=== PATIENT | female | born 1985 | race Caucasian/White ===

== ENCOUNTER 2019-08-05 07:34 | Day surgery (SDC) | payer OTHER ==
[2019-08-01 14:31] LABS: Absolute Lymphocytes (CBC) 1.6 K/uL (0.7-4.9); Basophils % 0.8 % (0-1.3); Hematocrit 44.9 % (36.0-45.0); Lymphocytes % 29.1 % (15.3-44.8); MPV 8.2 fL (7.6-11.3); RBC Red Blood Cell Count 4.75 M/uL (3.86-4.86)
[2019-08-01 15:03] LABS: ALT/SGPT 21 U/L (12-78); AST/SGOT 17 U/L (15-37); Albumin 4.1 g/dL (3.4-5.0); Alkaline Phosphatase 80 U/L (45-117); Amylase Level 55 U/L (25-115); BUN Blood Urea Nitrogen 8 mg/dL (7-18); Bicarbonate 30 mmol/L (21-32); Bilirubin Direct < 0.1 mg/dL (0-0.2); Bilirubin Total 0.3 mg/dL (0.2-1.0); Glucose Level 80 mg/dL (74-106); Lipase 208 U/L (73-393); Sodium Level 140 mmol/L (136-145)
--- OUTSIDE RECORDS SUMMARY | 2019-08-05 07:37 | XMS REPORT | Summary of Care ---
:1985 Author Organization [facility] Address [address] [place] [address] Care Team Providers Name Role Phone Rona Alexis DAY CARE CENTER DIRECTOR Primary Care Provider Reason for Visit Reason Comments Other refill lo loestrin Encounter Details Date Type Department Care Team Description 01/09/2019 Telephone [facility]- Rona Alexis, Other (refill lo [facility] loestrin ) [address] [facility] [address] [place], [place] [phone] Allergies Active Allergy Reactions Severity Noted Date Comments Azithromycin Hives 05/20/2016 Pt states she is allergic to the z-pack. Latex Other - See comments 01/25/2018 Sulfa (Sulfonamide Unknown - See 04/01/2009 Antibiotics) comments documented as of this encounter (statuses as of 01/09/2019) Medications Medication Sig Dispensed Refills Start Date End Date Status metoprolol succinate Take 25 mg by 0 Active XL (TOPROL XL) 25 mg mouth daily. 24 hr Indications: tabletIndications: MIGRAINE Migraine Prevention PREVENTION citalopram (CELEXA) 20 Take 40 mg by 0 Active mg tablet mouth daily. desvenlafaxine Take 100 mg by 0 Active succinate (PRISTIQ) mouth daily. 100 mg 24 hr tablet SUMAtriptan (IMITREX) Take 50 mg by 0 Active 50 mg tablet mouth once now. norethindrone-e.estrad Take 1 tablet by 1 Package 12 01/25/2018 Active iol-iron (LO LOESTRIN mouth daily. FE) 1 mg-10 mcg (24)/10 mcg (2) per tabletIndications: Surveillance of previously prescribed contraceptive pill ibuprofen 600 mg Take 1 tablet by 10 tablet 0 10/25/2018 Active tabletIndications: mouth every 6 Pain of right upper (six) hours as extremity, Right arm needed for Pain pain (scale 1-3). traMADOL 50 mg Take 1 tablet by 10 tablet 0 10/25/2018 Active tabletIndications: mouth every 8 Pain of right upper (eight) hours as extremity, Right arm needed for Pain pain (scale 7-10). documented as of this encounter (statuses as of 01/09/2019) Active Problems Problem Noted Date Well woman exam 01/25/2018 Anxiety disorder, unspecified type 01/25/2018 Depression 02/23/2016 Screening examination for STD (sexually transmitted disease) 09/04/2014 Pain pelvic 09/04/2014 Surveillance of previously prescribed contraceptive pill 09/04/2014 Endometriosis 02/11/2013 documented as of this encounter (statuses as of 01/09/2019) Resolved Problems Problem Noted Date Resolved Date BV (bacterial vaginosis) 05/31/2016 05/31/2016 Intractable migraine without status migrainosus 02/23/2016 01/25/2018 Overview: Managed with metoprolol Vaginal discharge 07/24/2015 01/25/2018 Candidiasis of vulva and vagina 02/06/2015 01/25/2018 Vaginal leukorrhea 09/04/2014 02/06/2015 Overview: ICD10 Diagnosis Term Corn Grinder Utility Pain pelvic 02/11/2013 09/04/2014 Abdominal pain 02/11/2013 09/04/2014 Overview: ICD10 Diagnosis Term Corn Grinder Utility Anxiety 02/11/2013 02/06/2015 Irregular menstrual cycle 02/11/2013 09/04/2014 documented as of this encounter (statuses as of 01/09/2019) Immunizations Name Administration Dates Next Due Tdap 06/05/2011 documented as of this encounter Social History Tobacco Use Types Packs/Day Years Used Date Never Smoker Smokeless Tobacco: Never Used Alcohol Use Drinks/Week oz/Week Comments No 0 Standard drinks or equivalent 0.0 special occasions ( 3 times a year) Sex Assigned at Date Recorded Not on file Job Start Date Occupation Industry Not on file Not on file Not on file Travel History Travel Start Travel End No recent travel history available. documented as of this encounter Last Filed Vital Signs Not on filedocumented in this encounter Plan of Treatment Health Maintenance Due Date Last Done Comments VARICELLA VACCINES (1 of 2 1997 - 13+ 2-dose series) INFLUENZA VACCINE 02/03/2019 PAP SMEAR 01/25/2021 01/25/2018, 02/23/2016, 10/24/2012, Additional history exists DTaP,Tdap,and Td Vaccines 06/05/2021 06/05/2011 (2 - Td) PNEUMOCOCCAL 0-64 YEARS Aged Out No longer eligible COMBINED SERIES based on patient's age to complete this topic documented as of this encounter Results Not on filedocumented in this encounter Insurance Payer Benefit Plan Subscriber ID Effective Dates Phone Address Type / Group ST OFF OF ST [place] OF [id number] 2018-Beatrice [facility] RISK MGMT RISK MGMT nt BCBS OF [facility] [id number] 2017-[place] [phone] [address] PPO/ POS [place] [facility] t 7 [id number] [place] [address] documented as of this encounter
--- OUTSIDE RECORDS SUMMARY | 2019-08-05 07:37 | XMS REPORT | Summary of Care ---
:1985 Author Organization [facility] Address [address] [place] [address] Care Team Providers Name Role Phone Rona Alexis CARE GIVER Primary Care Provider Reason for Visit Reason Comments Refill Request Encounter Details Date Type Department Care Team Description 01/04/2019 Telephone [facility]- Rona Alexis, CARE GIVER Refill Request [place] [address] [facility] [address] [place] [address] [place] [address] Allergies Active Allergy Reactions Severity Noted Date Comments Azithromycin Hives 05/20/2016 Pt states she is allergic to the z-pack. Latex Other - See comments 01/25/2018 Sulfa (Sulfonamide Unknown - See 04/01/2009 Antibiotics) comments documented as of this encounter (statuses as of 01/07/2019) Medications Medication Sig Dispensed Refills Start Date [...] as of this encounter (statuses as of 01/07/2019) Active Problems Problem Noted Date Well woman exam 01/25/2018 Anxiety disorder, unspecified type 01/25/2018 Depression 02/23/2016 Screening examination for STD (sexually transmitted disease) 09/04/2014 Pain pelvic 09/04/2014 Surveillance of previously prescribed contraceptive pill 09/04/2014 Endometriosis 02/11/2013 documented as of this encounter (statuses as of 01/07/2019) Resolved Problems Problem Noted Date Resolved Date BV (bacterial vaginosis) 05/31/2016 05/31/2016 Intractable migraine without status migrainosus 02/23/2016 01/25/2018 Overview: Managed with metoprolol Vaginal discharge 07/24/2015 01/25/2018 Candidiasis of vulva and vagina 02/06/2015 01/25/2018 Vaginal leukorrhea 09/04/2014 02/06/2015 Overview: ICD10 Diagnosis Term Parking Inspector Utility Pain pelvic 02/11/2013 09/04/2014 Abdominal pain 02/11/2013 09/04/2014 Overview: ICD10 Diagnosis Term Parking Inspector Utility Anxiety 02/11/2013 02/06/2015 Irregular menstrual cycle 02/11/2013 09/04/2014 documented as of this encounter (statuses as of 01/07/2019) Immunizations Name Administration Dates Next Due Tdap [...] Group ST OFF OF ST OFF OF [id number] 2018-Beatrice [facility] RISK MGMT RISK MGMT nt BCBS OF [facility] [id number] 2017-[place] [phone] [address] PPO/ POS [place] SELECT t 7 [id number] [place] [address] documented as of this encounter
--- OUTSIDE RECORDS SUMMARY | 2019-08-05 07:37 | XMS REPORT | Summary of Care ---
:1985 Author Organization [facility] Address [address] [place] [address] Care Team Providers Name Role Phone Rona Alexis NEURORADIOLOGIST Primary Care Provider Reason for Visit Reason Comments Refill Request Encounter Details Date Type Department Care Team Description 06/27/2019 Refill [facility] Rona Alexis, [facility] Refill Request [address] [facility] [address] [place] [address] [place] [address] [phone] Allergies Active Allergy Reactions Severity Noted Date Comments Azithromycin Hives 05/20/2016 Pt states she is allergic to the z-pack. Latex Other - See comments 01/25/2018 Sulfa (Sulfonamide Unknown - See 04/01/2009 Antibiotics) comments documented as of this encounter (statuses as of 06/27/2019) Medications Medication Sig Dispensed Refills Start Date End Date Status metoprolol succinate Take 25 mg by 0 Active XL (TOPROL XL) 25 mg mouth daily. 24 hr Indications: tabletIndications: MIGRAINE migraine prevention PREVENTION citalopram (CELEXA) 20 Take 40 mg by 0 Active mg tablet mouth daily. SUMAtriptan (IMITREX) Take 50 mg by 0 Active 50 mg tablet mouth once now. norgestimate-ethinyl Take 1 tablet by 1 Package 3 03/06/2019 Active estradiol mouth daily. 0.18/0.215/0.25 mg-25 mcg tabletIndications: Encounter for contraceptive management, unspecified type documented as of this encounter (statuses as of 06/27/2019) Active Problems Problem Noted Date Dysuria 05/09/2019 Essential hypertension 03/06/2019 History of anxiety 03/06/2019 History of depression 03/06/2019 History of endometriosis 03/06/2019 Encounter for contraceptive management, unspecified type 01/25/2018 Anxiety disorder, unspecified type 01/25/2018 Bacterial vaginosis 05/31/2016 Depression 02/23/2016 Vaginal discharge 07/24/2015 Screening examination for STD (sexually transmitted disease) 09/04/2014 Pain pelvic 09/04/2014 Surveillance of previously prescribed contraceptive pill 09/04/2014 Endometriosis 02/11/2013 documented as of this encounter (statuses as of 06/27/2019) Resolved Problems Problem Noted Date Resolved Date Intractable migraine without status migrainosus 02/23/2016 01/25/2018 Overview: Managed with metoprolol Candidiasis of vulva and vagina 02/06/2015 01/25/2018 Vaginal leukorrhea 09/04/2014 02/06/2015 Overview: ICD10 Diagnosis Term Supervisor Toy Assembly Utility Pain pelvic 02/11/2013 09/04/2014 Abdominal pain 02/11/2013 09/04/2014 Overview: ICD10 Diagnosis Term Supervisor Toy Assembly Utility Anxiety 02/11/2013 02/06/2015 Irregular menstrual cycle 02/11/2013 09/04/2014 documented as of this encounter (statuses as of 06/27/2019) Immunizations Name Administration Dates Next Due Tdap 06/05/2011 documented as of this encounter Social History Tobacco Use Types Packs/Day Years Used Date Never Smoker Smokeless Tobacco: Never Used Alcohol Use Drinks/Week oz/Week Comments Yes 0 Standard drinks or equivalent 0.0 special [...] Done Comments VARICELLA VACCINES (1 of 2 1985 - 2-dose childhood series) INFLUENZA VACCINE (#1) 2019 PAP SMEAR 01/25/2021 01/25/2018, 02/23/2016, 10/24/2012, Additional history exists DTaP,Tdap,and Td Vaccines 06/05/2021 06/05/2011 (2 - Td) PNEUMOCOCCAL 0-64 YEARS Aged Out No longer eligible COMBINED SERIES based on patient's age to complete this topic documented as of this encounter Results Not on filedocumented in this encounter Visit Diagnoses Diagnosis Encounter for contraceptive management, unspecified type documented in this encounter Insurance Payer Benefit Plan / Subscriber ID Effective Dates Phone Address Type Group ST OFF OF RISK ST OFF OF RISK [id number] 2018-Present [facility] MGMT MGMT documented as of this encounter
--- OUTSIDE RECORDS SUMMARY | 2019-08-05 07:37 | XMS REPORT ---
:1985 Author Organization [facility] Address [address] [place] [address] [place] [address] Care Team Providers Name Role Phone Unavailable Unavailable Unavailable Problems This patient has no known problems. Allergies, Adverse Reactions, Alerts This patient has no known allergies or adverse reactions. Medications This patient has no known medications.
--- OUTSIDE RECORDS SUMMARY | 2019-08-05 07:37 | XMS REPORT | Summary of Care ---
:1985 Author Organization [facility] Address [address] [place] [address] Care Team Providers Name Role Phone Rona Alexis SHAPER SETTER Primary Care Provider Reason for Visit Reason Comments Refill Request Encounter Details Date Type Department Care Team Description 12/31/[address] [facility] Rona Alexis, [facility] Refill Request [address] [facility] [address] [place] [address] [place] [address] [phone] Allergies Active Allergy Reactions Severity Noted Date Comments Azithromycin Hives 05/20/2016 Pt states she is allergic to the z-pack. Latex Other - See comments 01/25/2018 Sulfa (Sulfonamide Unknown - See 04/01/2009 Antibiotics) comments documented as of this encounter (statuses as of 12/31/2018) Medications Medication Sig Dispensed Refills Start Date [...] as of this encounter (statuses as of 12/31/2018) Active Problems Problem Noted Date Well woman exam 01/25/2018 Anxiety disorder, unspecified type 01/25/2018 Depression 02/23/2016 Screening examination for STD (sexually transmitted disease) 09/04/2014 Pain pelvic 09/04/2014 Surveillance of previously prescribed contraceptive pill 09/04/2014 Endometriosis 02/11/2013 documented as of this encounter (statuses as of 12/31/2018) Resolved Problems Problem Noted Date Resolved Date BV (bacterial vaginosis) 05/31/2016 05/31/2016 Intractable migraine without status migrainosus 02/23/2016 01/25/2018 Overview: Managed with metoprolol Vaginal discharge 07/24/2015 01/25/2018 Candidiasis of vulva and vagina 02/06/2015 01/25/2018 Vaginal leukorrhea 09/04/2014 02/06/2015 Overview: ICD10 Diagnosis Term Video Machines Mechanic Utility Pain pelvic 02/11/2013 09/04/2014 Abdominal pain 02/11/2013 09/04/2014 Overview: ICD10 Diagnosis Term Video Machines Mechanic Utility Anxiety 02/11/2013 02/06/2015 Irregular menstrual cycle 02/11/2013 09/04/2014 documented as of this encounter (statuses as of 12/31/2018) Immunizations Name Administration Dates Next Due Tdap [...] filedocumented in this encounter Visit Diagnoses Diagnosis Surveillance of previously prescribed contraceptive pill documented in this encounter Insurance Payer Benefit Plan Subscriber ID Effective Dates Phone Address Type / Group ST OFF [place] ST [place] OF [id number] 2018-Beatrice [employer] RISK MGMT RISK MGMT nt BCBS OF [facility] [id number] 2017-[place] [phone] [address]OX PPO/ POS [place] [facility] t 7 [id number] [place] [address] documented as of this encounter
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
--- OUTSIDE RECORDS SUMMARY | 2019-08-05 07:38 | XMS REPORT | Summary of Care ---
:1985 Author Organization [facility] Address [address] [place] [address] Care Team Providers Name Role Phone Rona Alexis PRIMARY SCHOOL TEACHER Primary Care Provider Reason for Visit Reason Comments Refill Request Encounter Details Date Type Department Care Team Description 06/28/2019 Refill [facility] [place] Rona Alexis, [facility] Refill Request [address] [facility] [address] [place] [address] [place] [address] [phone] Allergies Active Allergy Reactions Severity Noted Date Comments Azithromycin Hives 05/20/2016 Pt states she is allergic to the z-pack. Latex Other - See comments 01/25/2018 Sulfa (Sulfonamide Unknown - See 04/01/2009 Antibiotics) comments documented as of this encounter (statuses as of 06/28/2019) Medications Medication Sig Dispensed Refills Start Date [...] as of this encounter (statuses as of 06/28/2019) Active Problems Problem Noted Date Dysuria 05/09/2019 [...] as of this encounter (statuses as of 06/28/2019) Resolved Problems Problem Noted Date Resolved Date Intractable migraine without status migrainosus 02/23/2016 01/25/2018 Overview: Managed with metoprolol Candidiasis of vulva and vagina 02/06/2015 01/25/2018 Vaginal leukorrhea 09/04/2014 02/06/2015 Overview: ICD10 Diagnosis Term Scleroscope Tester Utility Pain pelvic 02/11/2013 09/04/2014 Abdominal pain 02/11/2013 09/04/2014 Overview: ICD10 Diagnosis Term Scleroscope Tester Utility Anxiety 02/11/2013 02/06/2015 Irregular menstrual cycle 02/11/2013 09/04/2014 documented as of this encounter (statuses as of 06/28/2019) Immunizations Name Administration Dates Next Due Tdap [...] OFF OF RISK ST OFF OF RISK [id number] 2018-Present [facility] MGMT MGMT documented as of this encounter
--- OUTSIDE RECORDS SUMMARY | 2019-08-05 07:38 | XMS REPORT | Summary of Care ---
:1985 Author Organization [facility] Address [address] [place] [address] Care Team Providers Name Role Phone Rona Alexis EQUIPMENT ENGINEER Primary Care Provider Reason for Visit Reason Comments Appointment Encounter Details Date Type Department Care Team Description 06/28/2019 Telephone [facility] [place] Rona Alexis, [facility] Appointment [address] [facility] [address] [place] [address] [place] [address] [phone] Allergies Active Allergy Reactions Severity Noted Date [...] leukorrhea 09/04/2014 02/06/2015 Overview: ICD10 Diagnosis Term Fiber Design Engineer Utility Pain pelvic 02/11/2013 09/04/2014 Abdominal pain 02/11/2013 09/04/2014 Overview: ICD10 Diagnosis Term Fiber Design Engineer Utility Anxiety 02/11/2013 02/06/2015 Irregular menstrual cycle [...] OFF OF RISK ST OFF OF RISK [id number] 2018-Present [facility] MGMT MGMT documented as of this encounter
--- OUTSIDE RECORDS SUMMARY | 2019-08-05 07:38 | XMS REPORT | Summary of Care ---
:1985 Author Organization [facility] Address [address] [place] [address] Care Team Providers Name Role Phone Rona Alexis DRAPERY AND UPHOLSTERY MEASURER Primary Care Provider Reason for Visit Reason Comments ORAL CONTRACEPTIVE PILL Encounter Details Date Type Department Care Team Description 07/01/2019 Office Visit [facility] Rona Alexis Encounter for DANE [place] contraceptive [address] [place] [address] [facility], unspecified [place], [place] type (Primary Dx) [address] [place] [address] [phone] Allergies Active Allergy Reactions Severity Noted Date [...] leukorrhea 09/04/2014 02/06/2015 Overview: ICD10 Diagnosis Term Inter Fold Roll Cutter Utility Pain pelvic 02/11/2013 09/04/2014 Abdominal pain 02/11/2013 09/04/2014 Overview: ICD10 Diagnosis Term Inter Fold Roll Cutter Utility Anxiety 02/11/2013 02/06/2015 Irregular menstrual cycle [...] Comments Blood Pressure 127/87 07/01/2019 3:42 PM OUTDOOR ADVENTURE GUIDES Pulse 68 07/01/2019 3:42 PM OUTDOOR ADVENTURE GUIDES Temperature 36.9 C (98.4 F) 07/01/2019 3:42 PM OUTDOOR ADVENTURE GUIDES Respiratory Rate 16 07/01/2019 3:42 PM OUTDOOR ADVENTURE GUIDES Oxygen Saturation - - Inhaled Oxygen Concentration - - Weight 62.3 kg (137 lb 5 oz) 07/01/2019 3:42 PM OUTDOOR ADVENTURE GUIDES Height 165.1 cm (5' 5") 07/01/2019 3:42 PM OUTDOOR ADVENTURE GUIDES Body Mass Index 22.85 07/01/2019 3:42 PM OUTDOOR ADVENTURE GUIDES documented in this encounter Progress Notes Rona Alexis, DRAPERY AND UPHOLSTERY MEASURER - 07/01/2019 2:45 PM CST Chief complaint: [...] level: Not on file Occupational History 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 Pt was given card by police justice for counseling. Has a protective order. Social [...]
--- OUTSIDE RECORDS SUMMARY | 2019-08-05 07:39 | XMS REPORT | Summary of Care ---
:1985 Author Organization [facility] Address [address] [place] [address] Care Team Providers Name Role Phone Rona Alexis CLOTH SHRINKING MACHINE OPERATOR Primary Care Provider Reason for Referral Radiology Services (STAT) Status Reason Specialty Diagnoses / Referred By Referred To Procedures Contact Contact New Request Diagnostic Diagnoses Right upper quadrant abdominal pain Hilary Segura Radiology Procedures US GALL BLADDER US ABDOMEN LIMITED MD Alexia [address] [address] Reason for Visit Reason Comments Abdominal Pain RUQ Auth/Cert Status Reason Specialty Diagnoses / Referred By Referred To Procedures Contact Contact Emergency Medicine Diagnoses ABD PAIN [facility] [address] [place] [address] [place] [address] Encounter Details Date Type Department Care Team Description 07/22/2019 Emergency [facility] Hilary Segura S, Gallbladder sludge ( Primary Dx); Department Right upper quadrant abdominal pain; [address] [place] [address] [address] [facility] [place] [address] [address] [place], [place] [address] Allergies Active Allergy Reactions Severity Noted Date Comments Azithromycin Hives 05/20/2016 Pt states she is allergic to the z-pack. Latex Other - See comments 01/25/2018 Sulfa (Sulfonamide Unknown - See 04/01/2009 Antibiotics) comments documented as of this encounter (statuses as of 07/22/2019) Medications Medication Sig Dispensed Refills Start Date [...] norgestimate-ethinyl Take 1 tablet by 1 Package 8 07/01/2019 Active estradiol mouth daily. 0.18/0.215/0.25 mg-25 mcg tabletIndications: Encounter for contraceptive management, unspecified type traMADol (ULTRAM) 50 Take 1 tablet by 20 tablet 0 07/22/2019 Active mg tabletIndications: mouth every 6 Right upper quadrant (six) hours as abdominal pain, needed for Pain Gallbladder sludge (scale 7-10). dicyclomine 20 mg Take 1 tablet by 20 tablet 0 07/22/2019 Active tabletIndications: mouth every 6 Right upper quadrant (six) hours as abdominal pain, needed for Gallbladder sludge Abdominal pain. ondansetron (ZOFRAN) 4 Take 1 tablet by 12 tablet 0 07/22/2019 Active mg tabletIndications: mouth every 8 Right upper quadrant (eight) hours as abdominal pain, needed for Nausea Gallbladder sludge and Vomiting (N/V). documented as of this encounter (statuses as of 07/22/2019) Active Problems Problem Noted Date Dysuria 05/09/2019 [...] as of this encounter (statuses as of 07/22/2019) Resolved Problems Problem Noted Date Resolved Date Intractable migraine without status migrainosus 02/23/2016 01/25/2018 Overview: Managed with metoprolol Candidiasis of vulva and vagina 02/06/2015 01/25/2018 Vaginal leukorrhea 09/04/2014 02/06/2015 Overview: ICD10 Diagnosis Term Change Release Manager Utility Pain pelvic 02/11/2013 09/04/2014 Abdominal pain 02/11/2013 09/04/2014 Overview: ICD10 Diagnosis Term Change Release Manager Utility Anxiety 02/11/2013 02/06/2015 Irregular menstrual cycle 02/11/2013 09/04/2014 documented as of this encounter (statuses as of 07/22/2019) Immunizations Name Administration Dates Next Due Tdap [...] Sign Reading Time Taken Comments Blood Pressure 102/76 07/22/2019 11:00 PM GLAZE SUPERVISOR Pulse 66 07/22/2019 11:00 PM GLAZE SUPERVISOR Temperature 37.2 C (99 F) 07/22/2019 6:42 PM GLAZE SUPERVISOR Respiratory Rate 18 07/22/2019 11:00 PM GLAZE SUPERVISOR Oxygen Saturation 97% 07/22/2019 11:00 PM GLAZE SUPERVISOR Inhaled Oxygen Concentration - - Weight 61.2 kg (135 lb) 07/22/2019 6:42 PM GLAZE SUPERVISOR Height 165.1 cm (5' 5") 07/22/2019 6:42 PM GLAZE SUPERVISOR Body Mass Index 22.47 07/22/2019 6:42 PM GLAZE SUPERVISOR documented in this encounter Discharge Instructions Hilary Washington MD - 07/22/2019 DIAGNOSIS Diagnoses that have been ruled out: None Diagnoses that are still under consideration: None Final diagnoses: Right upper quadrant pain Gallbladder sludge NO LIFE-THREATENING FINDINGS ON TODAY'S EXAM. PROCEDURES IN THE ER TODAY: Orders Placed This Encounter Procedures US GALL BLADDER Complete Metabolic Panel CBC with Differential Lipase, Serum Urinalysis POCT Test CBC WITH DIFFERENTIAL MEDICATIONS ADMINISTERED IN THE ER TODAY AND DISCHARGE MEDICATIONS: Orders Placed This Encounter Medications FENTanyl PF (SUBLIMAZE (PF)) injection 50 mcg ondansetron (ZOFRAN (PF)) injection 4 mg FOLLOW-UP RECOMMENDATIONS: RECOMMEND FOLLOW-UP WITH DR EDWARDS OR WITH DR CACERES FOR FURTHER EVALUATION AND MANAGEMENT DISCUSSED RETURN TO ER FOR WORSENING OF SYMPTOMS documented in this encounter Plan of Treatment Name Type Priority Associated Diagnoses Date/Time US GALL BLADDER IMAGING STAT Right upper quadrant 07/22/2019 9:34 PM GLAZE SUPERVISOR abdominal pain Health Maintenance Due Date Last Done Comments VARICELLA VACCINES (1 of 2 1985 - 2-dose childhood series) INFLUENZA VACCINE (#1) 2019 PAP SMEAR 01/25/2021 01/25/2018, 02/23/2016, 10/24/2012, Additional history exists DTaP,Tdap,and Td Vaccines 06/05/2021 06/05/2011 (2 - Td) PNEUMOCOCCAL 0-64 YEARS Aged Out No longer eligible COMBINED SERIES based on patient's age to complete this topic documented as of this encounter Procedures Procedure Name Priority Date/Time Associated Diagnosis Comments US GALL BLADDER STAT 07/22/2019 9:34 PM GLAZE SUPERVISOR Right upper quadrant abdominal pain Procedure Note - [facility], Radiant Results Inft User - 07/22/2019 10:54 PM GLAZE SUPERVISOR EXAM: US GALL BLADDER HISTORY: 33 years-old Female with RUQ PAIN AFTER MEALS. R/O GALLBLADDR DISEASE/STONES . TECHNIQUE: Limited abdominal ultrasound performed focused on the gallbladder. Main portal vein was evaluated with color Doppler imaging. Fruit Pitter images were obtained for the record. COMPARISON: None FINDINGS: LIVER: Limited evaluation of the liver on this focused gallbladder examination.. The hepatic parenchyma is slightly echogenic. The liver measures 11.8 cm in length. Hepatopetal flow in the main portal vein. The main portal vein measures 1.0 cm in diameter. GALLBLADDER: The evaluation is limited due to moderate contraction of the gallbladder. Small amount of gallbladder sludge may be present. Normal gallbladder wall thickness, 2 mm. No pericholecystic fluid. Negative Juarez's sign. BILE DUCTS: No intra- or extrahepatic biliary dilatation.. Common Duct diameter: 4 mm. PANCREAS: The partially visualized pancreatic head is unremarkable. OTHER: The visualized right kidney is unremarkable. IMPRESSION Evaluation is limited as the gallbladder is moderately contracted. Small amount of gallbladder sludge is suspected. No sonographic evidence of acute cholecystitis. Mild hepatic steatosis. Preliminary Report Dictated by Resident: Rubén Luo POCT TEST Routine 07/22/2019 7:36 PM Right upper Results for this GLAZE SUPERVISOR quadrant abdominal procedure are in pain the results section. CBC WITH DIFFERENTIAL STAT 07/22/2019 7:35 PM Right upper Results for this GLAZE SUPERVISOR quadrant abdominal procedure are in pain the results section. URINALYSIS STAT 07/22/2019 7:35 PM Right upper Results for this GLAZE SUPERVISOR quadrant abdominal procedure are in pain the results section. CBC WITH DIFFERENTIAL Routine 07/22/2019 7:35 PM Right upper Results for this GLAZE SUPERVISOR quadrant abdominal procedure are in pain the results section. COMP. METABOLIC PANEL STAT 07/22/2019 7:35 PM Right upper Results for this ([id number]) GLAZE SUPERVISOR quadrant abdominal procedure are in pain the results section. LIPASE STAT 07/22/2019 7:35 PM Right upper Results for this GLAZE SUPERVISOR quadrant abdominal procedure are in pain the results section. NOTICE OF PRIVACY Routine 07/22/2019 6:37 PM PRACTICES GLAZE SUPERVISOR CONSENT/REFUSAL FOR Routine 07/22/2019 6:37 PM DIAGNOSIS AND GLAZE SUPERVISOR TREATMENT documented in this encounter Results POCT Test (07/22/2019 7:36 PM GLAZE SUPERVISOR) [facility] POCT PREG negative On board controls acceptable present with C Line POCT PREG LOT # [id number] POCT PREG TEST DATE 01/02/2021 Specimen Urine - URINE, CLEAN CATCH CBC WITH DIFFERENTIAL (07/22/2019 7:35 PM GLAZE SUPERVISOR) [facility] WBC 6.12 4.30 - 11.10 [facility] 10*3/L [facility] RBC 4.38 3.93 - 5.25 [facility] 10*6/L [facility] HGB 13.7 11.6 - 15.0 [facility] g/dL [facility] HCT 41.4 35.7 - 45.2 % [facility] MCV 94.5 80.6 - 95.5 fL [facility] MCH 31.3 25.9 - 32.8 pg [facility] MCHC 33.1 31.6 - 35.1 [facility] g/dL [facility] RDW-SD 41.1 39.0 - 49.9 fL [facility] RDW-CV 11.8 (L) 12.0 - 15.5 % [facility] PLT 280 166 - 358 [facility] 10*3/L [facility] MPV 9.6 9.5 - 12.9 fL [facility] NRBC/100 WBC 0.0 0.0 - 10.0 /100 [facility] WBCs [facility] NRBC x10^3 <0.01 10*3/L [facility] GRAN MAT (NEUT) % 47.3 % [facility] IMM GRAN % 0.20 % [facility] LYMPH % 40.7 % [facility] MONO % 10.0 % [facility] EOS % 1.3 % [facility] BASO % 0.5 % [facility] GRAN MAT x10^3(ANC) 2.90 1.88 - 7.09 [facility] 10*3/uL [facility] IMM GRAN x10^3 <0.03 0.00 - 0.06 [facility] 10*3/uL [facility] LYMPH x10^3 2.49 1.32 - 3.29 [facility] 10*3/uL [facility] MONO x10^3 0.61 0.33 - 0.92 [facility] 10*3/uL [facility] EOS x10^3 0.08 0.03 - 0.39 [facility] 10*3/uL [facility] BASO x10^3 0.03 0.01 - 0.07 [facility] 103/uL [facility] Specimen Blood - VENOUS Performing Organization Address City/State/Zipcode Phone Number [facility] CLIA: [id number], [address] [place] [address] Urinalysis (07/22/2019 7:35 PM GLAZE SUPERVISOR) APPEARANCE Clear Clear [facility] COLOR Yellow Yellow [facility] PH 7.0 4.8 - 8.0 [facility] SP GRAVITY 1.008 1.003 - 1.030 [facility] GLU U QUAL Normal Normal [facility] BLOOD Negative Negative [facility] KETONES Negative Negative [facility] PROTEIN Negative Negative [facility] UROBILIN Normal Normal [facility] BILIRUBIN Negative Negative [facility] NITRITE Negative Negative [facility] LEUK ALEXANDRE Negative Negative [facility] RBC/HPF 1 0 - 3 HPF [facility] WBC/HPF <1 0 - 5 HPF [facility] BACTERIA Negative Negative [facility] SQ EPITH 1 HPF [facility] Specimen Urine - URINE, CLEAN CATCH Performing Organization Address City/[facility]/Zipcode Phone Number [facility] CLIA: [id number], [address] [place] [address] Lipase, Serum (07/22/2019 7:35 PM GLAZE SUPERVISOR) LIPASE 149 0 - 220 U/L [facility] Specimen Blood - VENOUS Performing Organization Address [facility] Phone Number [facility] CLIA: [id number], [address] [place] [address] Complete Metabolic Panel (07/22/2019 7:35 PM GLAZE SUPERVISOR) NA 140 135 - 145 [facility] mmol/L [facility] K 3.3 (L) 3.5 - 5.0 [facility] mmol/L [facility] CL 106 98 - 108 mmol/L [facility] CO2 TOTAL 27 23 - 31 mmol/L [facility] AGAP 7 2 - 16 [facility] BUN 6 (L) 7 - 23 mg/dL [facility] GLUCOSE 100 70 - 110 mg/dL [facility] CREATININE 0.60 0.50 - 1.04 [facility] mg/dL [facility] TOTAL BILI 0.2 0.1 - 1.1 mg/dL [facility] CALCIUM 9.2 8.6 - 10.6 [facility] mg/dL [facility] T PROTEIN 7.2 6.3 - 8.2 g/dL [facility] ALBUMIN 4.5 3.5 - 5.0 g/dL [facility] ALK PHOS 48 34 - 122 U/L [facility] ALTv 12 5 - 35 U/L [facility] AST(SGOT) 23 13 - 40 U/L [facility] eGFR Calculation 114.4 mL/min/1.73m2 [facility] ([facility] LABORATORY Cambodian) eGFR Calculation 138.7 mL/min/1.73m2 [facility] LABORATORY Specimen Blood - VENOUS Narrative Performed At Association of Glomerular Filtration Rate (GFR) [facility] and Staging of Kidney Disease* + + +- + | GFR (mL/min/1.73 m2) | With Kidney Damage | Without Kidney Damage + + +- + | >90 | Stage one | Normal + + +- + | 60-89 | Stage two | Decreased GFR + + +- + | 30-59 | Stage three | Stage three + + +- + | 15-29 | Stage four | Stage four + + +- + | <15 (or dialysis) | Stage five | Stage five + + +- + *Each stage assumes the associated GFR level has been in effect for at least three months. Stages 1 to 5, with or without kidney disease, indicate chronic kidney disease. Notes: Determination of stages one and two (with eGFR >59mL/min/1.73 m2) requires estimation of kidney damage for at least three months as defined by structural or functional abnormalities of the kidney, manifested by either: Pathological abnormalities or Markers of kidney damage (including abnormalities in the composition of the blood or urine or abnormalities in imaging tests). Performing Organization Address City/State/Zipcode Phone Number [facility] CLIA: [id number], [address] [place] [address] [facility] [address] documented in this encounter Visit Diagnoses Diagnosis Gallbladder sludge - Primary Calculus of gallbladder without mention of cholecystitis or obstruction Right upper quadrant abdominal pain Abdominal pain, right upper quadrant Right upper quadrant pain Abdominal pain, right upper quadrant documented in this encounter Administered Medications Medication Order MAR Action Action Date Dose Rate Site FENTanyl PF (SUBLIMAZE (PF)) Given 07/22/2019 8:32 PM GLAZE SUPERVISOR 50 mcg injection 50 mcg 50 mcg, Slow IV Push, ONCE, 1 dose, 07/22/19 at 2130, Routine ondansetron (ZOFRAN (PF)) injection 4 mg Given 07/22/2019 8:32 PM GLAZE SUPERVISOR 4 mg 4 mg, Slow IV Push, ONCE, 1 dose, Mon07/22/19 at 2130, JEREL documented in this encounter Insurance Payer Benefit Plan / Subscriber ID Effective Dates Phone Address Type Group [employer] MEDICAID OF xxxxxxxxx 2019-Present [phone] [place] [address] [place] [address] (Home) [place] [address] documented as of this encounter
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
[2019-08-05] MEDS ORDERED: CEFOXITIN/SWI 1gm 1 GM/10 ML SYR ONE (07:47)
[2019-08-05] MEDS ORDERED: Ringers Lactate 1,000 ML IV ONE (07:47)
[2019-08-05] MEDS ORDERED: propofoL 200 MG/20 ML VIAL IV ONE (08:21)
[2019-08-05] MEDS ORDERED: MIDAZOLAM HCL 2 MG/2 ML INJ ONE (08:21)
[2019-08-05] MEDS ORDERED: FENTANYL CITR 100 MCG/2 ML ONE ×2 (08:21→09:07)
[2019-08-05] MEDS ORDERED: LIDOCAINE 1% MPF 5 ML VIAL ONE (08:22)
[2019-08-05] MEDS ORDERED: ROCURONIUM 50 MG/5 ML VIAL IV ONE (08:22)
[2019-08-05] MEDS ORDERED: KETOROLAC 30 MG/ML INJ ONE (09:04)
[2019-08-05] MEDS ORDERED: GLYCOPYRROLATE 0.2 MG/ML SYR ONE (09:04)
[2019-08-05] MEDS ORDERED: ONDANSETRON 4 MG/2 ML VIAL ONE (09:05)
[2019-08-05] MEDS ORDERED: NEOSTIGMINE 1 MG/ML -5 ML ONE (09:05)
--- NOTE | 2019-08-05 09:20 | P.BOP ---
Preoperative diagnosis: symptomatic cholelithiasis, RUQ abd pain Postoperative diagnosis: same, cholecystitis Primary procedure: Laparoscopic cholecystectomy Learning Coordinator: SYD ARNETT (A[employer] CONDITIONING MECH[employer]IC [employer]USTRIAL) Estimated blood loss: <10cc Specimen: gb Findings: as above, cholecystitis Anesthesia: General Complications: None Transferred to: Recovery Room Condition: Good
[2019-08-05 10:07] VITALS: O2SAT 100
[2019-08-05] MEDS ORDERED: CODEINE 30MG/APAP 300MG TAB ONE (10:39)
[2019-08-05 11:30] VITALS: BP 109/78; TEMP 97.5
--- NOTE | 2019-08-05 19:47 | OP ---
Date of Procedure: 08/05/2019 Surgeon: Altaf Rodriguez MD Biology Intern: GUZMAN Barry Preoperative Diagnoses: Symptomatic cholelithiasis, right upper quadrant abdominal pain. Postoperative Diagnoses: Symptomatic cholelithiasis, right upper quadrant abdominal pain. Procedure: Laparoscopic cholecystectomy. Anesthesia: General plus local. Indications: This is a case of a 34-year-old patient, who comes to us with above diagnosis. The abril efits, alternatives, and risks of laparoscopic, possible open cholecystectomy fully explained to the patient, which include but are not limited to infection, bleeding, damage to adjacent structures, ane sthesia complication, choledocholithiasis, bile leak, pancreatitis, OH, and even . She also und erstands this may not relieve any symptoms. She might need more than one surgical intervention. She understood, signed a consent. Description Of Procedure: Patient was brought to the operating room, placed in supine position. Ane sthesia was done without complication. Abdominal area was prepped and draped in a sterile fashion. Marcaine 0.5% was injected for local anesthetic, followed by sharp incision of the skin in the infrau mbilical region. Incision was carried down to fascia, which was opened under direct vision. Periton eum was encountered, opened under direct vision. Vicryl #1 placed inside the fascia. Shankar trocar was carefully introduced. No bleeding was obtained. I placed 3 more trocars, 5 mm each one of them, in the right upper quadrant area under direct visualization. At that moment, I proceeded to put a g rasper in the fundus of the gallbladder, another grasper in the infundibulum, retracted the gallbladd er in the inferolateral fashion exposing the triangle of Calot obtaining critical view of safety. Cy stic duct and cystic artery were clearly isolated, freed circumferentially and a connection between t hose and the gallbladder were clearly identified. I proceeded to ligate those by using at least 3 cl ips proximal, 1 clip distal, ligation in the middle. Same was done with the cystic artery. No bile leak. No bleeding. The gallbladder was removed from liver using Bovie cauterizer and removed from a bdominal cavity using EndoCatch through the umbilical incision. The area was inspected once again. No bile leak. No bleeding. At that moment, I proceeded to remove the trocars under direct vision. Deflated the pneumoperitoneum. Closed the fascia with #1 Vicryl, irrigated subcutaneous tissue, clos ed that with 3-0 chromic and skin in a subcuticular fashion with 3-0 chromic and Steri-Strips on top. Sponge count and instrument counts were correct. Patient tolerated the procedure well. Patient wa s sent to recovery in stable condition. Disposition: Home. Activity: As tolerated. No heavy lifting. Followup: Follow up in my office in 1 week. Call for appointment [phone]. Keep area dry for 48 ho urs, then may shower. Keep Steri-Strip intact. Medications: Include Tylenol No. 3 q.4 hours p.r.n. pain and Cipro 500 p.o. q.12. SPENCER/SALONI Voice ID: [id number] Report ID: [id number]
== END 2019-08-05 11:20 | disposition home or self-care (01) ==
LOC: OR 07:34
PROVIDERS: ATTEND Surgery
PROC: 0FT44ZZ Resection of Gallbladder, Percutaneous Endoscopic Approach (ICD-10-PCS; principal; 2019-08-05 08:30)
DX: K80.20 Calculus of gallbladder without cholecystitis without obstruction (principal); I10 Essential (primary) hypertension; Z88.2 Allergy status to sulfonamides; Z91.040 Latex allergy status; Z80.9 Family history of malignant neoplasm, unspecified; Z82.49 Family history of ischemic heart disease and other diseases of the circulatory system
CPT/HCPCS: 85025; 80048; 36415; 82150; 81025; 80076; 88304; 83690; 47562; J2704; J2250; J3010 ×2; J2710; J7120; J2405

== ENCOUNTER 2019-09-24 18:34 | Inpatient (IN) | payer OTHER ==
--- OUTSIDE RECORDS SUMMARY | 2019-09-24 18:36 | XMS REPORT ---
:1985 Author Organization [facility] t Address [address] [place] [address] Care Team Providers Name Role Phone Unavailable Unavailable Unavailable Problems This patient has no known problems. Allergies, Adverse Reactions, Alerts This patient has no known allergies or adverse reactions. Medications This patient has no known medications.
--- OUTSIDE RECORDS SUMMARY | 2019-09-24 18:39 | XMS REPORT | Summary of Care ---
:1985 Author Organization [facility] Address [address] [place] [address] Care Team Providers Name Role Phone Mason Alexis Primary Care Provider Reason for Visit Reason Comments Cough x 3 wks, dry, pt denies luz maria r, pt had laparoscopic cholecysectomy on 08/05/2019 WHEEZING Encounter Details Date Type Department Care Team Description 08/10/2019 Urgent Care [facility] Unknown, Attending B lorenzo (Primary Urgent Care Dinorah Dubon FNP [address] [place] [address] Dx) [address] [place] [address] Allergies Active Allergy Reactions Severity Noted Date Comments Azithromycin Hives 05/20/2016 Pt states she i s allergic to the z-pack. Latex Other - See comments 01/25/2018 Sulfa (Sulfonamide Unknown - See 04/01/2009 Antibiotics) comments documented as of this encounter (statuses as of 08/10/2019) Medications Medication Sig Dispensed Refills Start Date End Date Status metoprolol succinate XL Take 25 mg by 0 Active (TOPROL XL) 25 mg 24 hr mouth daily. tabletIndications: Indications: migraine prevention MIGRAINE PREVENTION citalopram (CELEXA) 20 Take 40 mg by 0 Active mg tablet mouth daily. SUMAtriptan (IMITREX) 50 Take 50 mg by 0 Active mg tablet mouth once now. norgestimate-ethinyl Take 1 tablet by 1 Package 8 07/01/2019 Active estradiol mouth daily. 0.18/0.215/0.25 mg-25 mcg tabletIndications: Encounter for contraceptive management, unspecified type traMADol (ULTRAM) 50 mg Take 1 tablet by 20 tablet 0 0 Active tabletIndications: Right mouth every 6 upper quadrant abdominal (six) hours as pain, Gallbladder sludge needed for Pain (scale 7-10). dicyclomine 20 mg Take 1 tablet by 20 tablet 0 07/22/2019 Active tabletIndications: Right mouth every 6 upper quadrant abdominal (six) hours as pain, Gallbladder sludge needed for Abdominal pain. ondansetron (ZOFRAN) 4 Take 1 tablet by 12 tablet 0 07/22/2019 Active mg tabletIndications: mouth every 8 Right upper quadrant (eight) hours as abdominal pain, needed for Gallbladder sludge Nausea and Vomiting (N/V). acetaminophen with Take by mouth. 0 Active codeine (TYLENOL-CODEINE #3 ORAL) ciprofloxacin/ciprofloxa Take by mouth. 0 Active HCl (CIPROFLOXACIN ER ORAL) methylPREDNISolone Take by mouth 21 Each 0 08/10/2019 Active (MEDROL, ADELAIDA,) 4 mg SEE-INSTRUCTIONS tabletsIndications: . follow package Bronchitis directions promethazine-dextrometho Take 5 mL by 210 mL 0 08/10/2019 Active rphan 6.25-15 mg/5 mL mouth 4 (four) syrupIndications: times daily as Bronchitis needed for Cough. albuterol 90 Inhale 2 Puffs 8.5 g 0 08/10/2019 A ctive mcg/actuation every 6 (six) inhalerIndications: hours as needed Bronchitis for Wheezing or Chest tightness. amoxicillin-clavulanate Take 1 tablet by 14 tablet 0 0 Active 875-125 mg per mouth 2 (two) 0 tabletIndications: times daily for Bronchitis 7 days. documented as of this encounter (statuses as of 08/10/2019) Active Problems Problem Noted Date Dysuria 05/09/2019 Essential hypertension 03/06/2019 History of anxiety 03/06/2019 History of depression 03/06/2019 History of endometriosis 03/06/2019 Encounter for contraceptive management, unspecified ty pe 01/25/2018 Anxiety disorder, unspecified type 01/25/2018 Bacterial vaginosis 05/31/2016 Depression 02/23/2016 Vaginal discharge 07/24/2015 Screening examination for STD (sexually transmitted di sease) 09/04/2014 Pain pelvic 09/04/2014 Surveillance of previously prescribed contraceptive pi ll 09/04/2014 Endometriosis 02/11/2013 documented as of this encounter (statuses as of 08/10/2019) Resolved Problems Problem Noted Date Resolved Date Intractable migraine without status migrainosus 02/23/2016 01/25/2018 Overview: Managed with metoprolol Candidiasis of vulva and vagina 02/06/2015 01/26/20 Vaginal leukorrhea 09/04/2014 02/06/2015 Overview: ICD10 Diagnosis Term Hydrator Utility Pain pelvic 02/11/2013 09/04/2014 Abdominal pain 02/11/2013 09/04/2014 Overview: ICD10 Diagnosis Term Hydrator Utility Anxiety 02/11/2013 02/06/2015 Irregular menstrual cycle 02/11/2013 09/04/2014 documented as of this encounter (statuses as of 08/10/2019) Immunizations Name Administration Dates Next Due Tdap [...] Sign Reading Time Taken Comments Blood Pressure 120/78 08/10/2019 2:03 PM CLINICAL PROGRAM DIRECTOR Pulse 77 08/10/2019 2:03 PM CLINICAL PROGRAM DIRECTOR Temperature 37 C (98.6 F) 08/10/2019 2:03 PM CLINICAL PROGRAM DIRECTOR Respiratory Rate 20 08/10/2019 2:03 PM CLINICAL PROGRAM DIRECTOR Oxygen Saturation 97% 08/10/2019 2:03 PM CLINICAL PROGRAM DIRECTOR Inhaled Oxygen Concentration - - Weight 61.6 kg (135 lb 12.8 oz) 08/10/2019 2:03 PM CLINICAL PROGRAM DIRECTOR Height 165.1 cm (5' 5") 08/10/2019 2:03 PM CLINICAL PROGRAM DIRECTOR Body Mass Index 22.6 08/10/2019 2:03 PM CLINICAL PROGRAM DIRECTOR documented in this encounter Patient Instructions Patient InstructionsDinorah Dubon, DANE - 08/10/2019 2:00 PM CST1. Bronchitis - methylPREDNISolone (MEDROL, ADELAIDA,) 4 mg tablets; Take by mouth SEE- INSTRUCTIONS. follow package directions Dispense: 21 Each; Refill: 0 - promethazine-dextromethorphan 6.25-15 mg/5 mL syrup; Take 5 mL by mouth 4 (four) times daily as needed for Cough. Dispense: 210 mL; Refill: 0 - albuterol 90 mcg/actuation inhaler; Inhale 2 Puffs every 6 (six) hours as needed for Wheezing or Chest tightness. Dispense: 8.5 g; Refill: 0 - amoxicillin-clavulanate 875-125 mg per tablet; Take 1 tablet by mouth 2 (two) times daily for 7 days. Dispense: 14 tablet; Refill: 0 - wait and see rx given (discussed to try the treatment plan first, if no improvement over the next 5 days then start antibiotic). - education provided to patient regarding home care includes: Rest Increase fluids -Hydration with clear liquids. Vitamin C Warm salt water gargles for sore throat. Breath humidified air (steam) Sipping warm drinks may help. Warm Compresses (if sinus pressure or pain). Hand Hygiene (with alcohol gels or hand washing) Advised to take Tylenol or Ibuprofen as per label recommendation as needed for pain or fever Honey 10mL (2 teaspoons) has been shown to relieve cough at bedtime. Dark Chocolate helps with cough (xanthenes) Avoidance of cigarette smoke, alcoholic drinks, diving into deep water and air travel is useful. Irrigate your nose with normal saline moisture spray 2 or 3 times a day. You may use a spray, squeeze bottle, or nasal pot. - Advised to follow up with PCP, Urgent Care, or go to the nearest Emergency Department sooner for any new, worsening, persistent, or concerning symptoms. Viral or Bacterial Bronchitis with Wheezing(Adult) Bronchitis is an infection of the air passages. It often occurs during a cold and is usually caused by a virus. Symptoms include cough with mucus (phlegm) and low-grade fever. This illness is contagious during the first few days and is spread through the air by coughing and sneezing, or by direct contact (touching the sick person and then touching your own eyes, nose, or mouth). If there is a lot of inflammation, air flow is restricted. The air passages may also go into spasm, especially if you have asthma. This causes wheezing and difficulty breathing even in people who do not have asthma. Bronchitis usually lasts 7 to 14 days. The wheezing should improve with treatment during the first week. An inhaler is often prescribed to relax the air passages and stop wheezing. Antibiotics will be prescribed if your doctor thinks there is also a secondary bacterial infection. Home care If symptoms are severe, rest at home for the first 2 to 3 days. When you go back to your usual activities, don't let yourself get too tired. Dont s'moke. Also avoid being exposed to secondhand smoke. You may use hvbj-iwz-edkhwia medicine to control fever or pain, unless another medicine was prescribed. Note: If you have chronic liver or kidney disease or have ever had a stomach ulcer or gastrointestinal bleeding, talk with your healthcare provider before using these medicines. Also talk to yourprovider if you are taking medicine to prevent blood clots.) Aspirin should never be given to anyoneyounger than 18 years of age who is ill with a viral infection or fever. It may cause severe liver or brain damage. Your appetite may be poor, so a light diet is fine. Stay well hydrated by drinking 6 to 8 glassesof fluids per day (such as water, soft drinks, sports drinks, juices, tea, or soup). Extra fluids will help loosen secretions in the nose and lungs. Yabi-jzq-oydiccr cough, cold, and sore-throat medicines will not shorten the length of the illness, but they may be helpful to reduce symptoms. (Note: Don't use decongestants if you have high blood pressure.) If you were given an inhaler, use it exactly as directed. If you need to use it more often than prescribed, your condition may be worsening. If this happens, contact your healthcare provider. If prescribed, finish all antibiotic medicine, even if you are feeling better after only a few days. Follow-up care Follow up with your healthcare provider, or as advised. If you had an X-ray or ECG (electrocardiogram), a specialist will review it. You will be notified of any new findings that may affect your care. If you are age 65 or older, or if you have a chronic lung disease or condition that affects your immune system, or you smoke, ask your healthcare provider about getting a pneumococcal vaccine and a yearly flu shot (influenza vaccine). When to seek medical advice Call your healthcare provider right away if any of these occur: Fever of 100.4F (38C) or higher, or as directed by your healthcare provider Coughing up increasing amounts of colored sputum Weakness, drowsiness, headache, facial pain, ear pain, or a stiff neck Call 911 Call 911 if any of these occur. Coughing up blood Worsening weakness, drowsiness, headache, or stiff neck Increased wheezing not helped with medication, shortness of breath, or pain with breathing [employer] last reviewed this educational content on 11/03/[id number] [employer]. [address] [place] [address], [place] [address]. All rights reserved. This information is not intended as a substitute for professional medical care. Always follow your healthcare professional's instructions. ICAL PROGRAM DIRECTOR documented in this encounter Progress Notes Dinorah Dubon FNP - 08/10/2019 2:00 PM CST Cc: Chief Complaint Patient presents with Cough x 3 wks, dry, pt denies fever, pt had laparoscopic cholecysectomy on 08/05/2019 WHEEZING Ashly Sylvester is a 34 year old female presents to with concern for coughing and wheezing. She's been having dry cough for 3 weeks. Runny nose and congestion resolved about 1 week ago. Recent laparoscopic cholecystectomy about 5 days ago. Has been active and walking a lot. Does note when laying down at night coughing worse and feels wheezing. Has been taking robitussin and delsym with littleimprovement. Denies any fever, chills or body aches. Denies any sob or travel. URI Presenting symptoms: cough Presenting symptoms: no congestion, no ear pain, no facial pain, no fever, no rhinorrhea and no sorethroat Severity: Moderate Onset quality: Gradual Duration: 3 weeks Timing: Intermittent Progression: Unchanged Chronicity: New Relieved by: Nothing Worsened by: Certain positions Associated symptoms: wheezing Associated symptoms: no arthralgias, no headaches, no myalgias, no neck pain, no sinus pain, no sneezing and no swollen glands Risk factors: no immunosuppression, no recent illness, no recent travel and no sick contacts Allergies Ashly is allergic to azithromycin; latex; and sulfa (sulfonamide antibiotics). Medications Outpatient Medications Prior to Visit Medication Sig Dispense Refill acetaminophen with codeine (TYLENOL-CODEINE #3 ORAL) Take by mouth. ciprofloxacin/ciprofloxa HCl (CIPROFLOXACIN ER ORAL) Take by mouth. norgestimate-ethinyl estradiol 0.18/0.215/0.25 mg-25 mcg tablet Take 1 tablet by mouth daily. 1 Package 8 dicyclomine 20 mg tablet Take 1 tablet by mouth every 6 (six) hours as needed for Abdominal pain. 20 tablet 0 ondansetron (ZOFRAN) 4 mg tablet Take 1 tablet by mouth every 8 (eight) hours as needed for Nausea and Vomiting (N/V). 12 tablet 0 traMADol (ULTRAM) 50 mg tablet Take 1 tablet by mouth every 6 (six) hours as needed for Pain (scale 7-10). 20 tablet 0 SUMAtriptan (IMITREX) 50 mg tablet Take 50 mg by mouth once now. citalopram (CELEXA) 20 mg tablet Take 40 mg by mouth daily. metoprolol succinate XL (TOPROL XL) 25 mg 24 hr tablet Take 25 mg by mouth daily. Indications: MIGRAINE PREVENTION No facility-administered medications prior to visit. Histories Past Medical History: Diagnosis Date Abnormal Pap smear 2011 Anxiety 2000 under medical supervision, taking medications Candidiasis of vulva and vagina 02/06/2015 Depression 02/22/2010 under medical supervision, on medication Endometriosis 2008 Gonorrhea 2002 Hypertension 2009 on medication Irregular menstrual cycle 02/11/2013 Menstrual disorder 2011 no menses since 2011 Screening for STD (sexually transmitted disease) 09/04/2014 Past Surgical History: Procedure Laterality Date APPENDECTOMY 11/15/2005 BREAST PROSTHESIS SILICONE/E BREAST SURGERY 2013 implants LAP,SALPINGOSTOMY LAPAROSCOPIC EXCISION OF ENDOMETRIOSIS (SHX) 2009 Social History Socioeconomic History Marital status: Spouse name: Not on file Number of children: 1 Years of education: Not on file Highest education level: Not on file Occupational History 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 Pt was given card by police district switchboard operator for counseling. Has a protective order. Family History Problem Relation Age of Onset [...] NoFHx Neurological NoFHx Osteoporosis NoFHx Psychiatry NoFHx Review of Systems Constitutional: Negative for chills and fever. HENT: Negative for congestion, ear pain, rhinorrhea, sinus pain, sneezing and sore throat. Respiratory: Positive for cough and wheezing. Negative for shortness of breath and stridor. Gastrointestinal: Negative for diarrhea, nausea and vomiting. Musculoskeletal: Negative for arthralgias, myalgias and neck pain. Skin: Negative for rash. Neurological: Negative for dizziness, weakness and headaches. All other systems reviewed and are negative. Vital Signs BP 120/78 | Pulse 77 | Temp 37 C (98.6 F) (Oral) | Resp 20 | Ht 5' 5" (1.651 m) | Wt 135 lb12.8 oz (61.6 kg) | LMP 07/22/2019 (Exact Date) | SpO2 97% | BMI 22.60 kg/m Physical Exam Constitutional: She is oriented to person, place, and time. She appears well- developed and well-nourished. HENT: Head: Normocephalic and atraumatic. Right Ear: Tympanic membrane, external ear and ear canal normal. Left Ear: Tympanic membrane, external ear and ear canal normal. Nose: Nose normal. Mouth/Throat: Uvula is midline, oropharynx is clear and moist and mucous membranes are normal. Tonsils are 1+ on the right. Tonsils are 1+ on the left. Eyes: Conjunctivae are normal. Neck: Normal range of motion. Neck supple. Cardiovascular: Normal rate, regular rhythm and normal heart sounds. Exam reveals no gallop and no friction rub. No murmur heard. Pulmonary/Chest: Effort normal and breath sounds normal. No accessory muscle usage or stridor. No tachypnea. No respiratory distress. She has no decreased breath sounds. She has no wheezes. She has no rhonchi. She has no rales. Musculoskeletal: Normal range of motion. Neurological: She is alert and oriented to person, place, and time. Skin: Skin is warm and dry. Psychiatric: She has a normal mood and affect. Her behavior is normal. Nursing note and vitals reviewed. Assessment/Plan Ashly Sylvester is a 34 year old female presents to with concern for coughing and wheezing. 1. Bronchitis - methylPREDNISolone (MEDROL, ADELAIDA,) 4 mg tablets; Take by mouth SEE- INSTRUCTIONS. follow package directions Dispense: 21 Each; - promethazine-dextromethorphan 6.25-15 mg/5 mL syrup; Take 5 mL by mouth 4 (four) times daily as needed for Cough. Dispense: 210 mL; Refill: - albuterol 90 mcg/actuation inhaler; Inhale 2 Puffs every 6 (six) hours as needed for Wheezing or Chest tightness. Dispense: 8.5 g; Refill: 0 - amoxicillin-clavulanate 875-125 mg per tablet; Take 1 tablet by mouth 2 (two) times daily for 7 days. Dispense: 14 tablet; Refill: 0 - (wait and see rx given; discussed to try the treatment plan first, if no improvement over the next 5 days then start antibiotic). - education provided to patient regarding home care includes: Rest Increase fluids -Hydration with clear liquids. Vitamin C Warm salt water gargles for sore throat. Breath humidified air (steam) Sipping warm drinks may help. Warm Compresses (if sinus pressure or pain). Hand Hygiene (with alcohol gels or hand washing) Advised to take Tylenol or Ibuprofen as per label recommendation as needed for pain or fever Honey 10mL (2 teaspoons) has been shown to relieve cough at bedtime. Dark Chocolate helps with cough (xanthenes) Avoidance of cigarette smoke, alcoholic drinks, diving into deep water and air travel is useful. Irrigate your nose with normal saline moisture spray 2 or 3 times a day. You may use a spray, squeeze bottle, or nasal pot. - Advised to follow up with PCP, Urgent Care, or go to the nearest Emergency Department sooner for any new, worsening, persistent, or concerning symptoms. Plan of care, desired health behaviors, goals, and medication discussed with patient. Education resources provided and reviewed with AVS. Patient/guardian/family verbalized understanding & agrees to plan of care. If applicable, the [place] [employer] database was accessed to review any controlled substance prescription claims data. The [employer] prescription claims data in [employer] was reviewed to assess patient compliance with the medication treatment plan. Urgent Care precautions and follow up : 1. Return to clinic if your symptoms should worsen or fail to improve within 72 hours. 2. The care provided in the urgent care was for acute problems only. 3. You should follow up with your primary care provider within 72 hours. 4. Fill and take all your medications as prescribed. 5. Make sure you are staying adequately hydrated. MAY FOLLOW-UP WITH A PROVIDER OF YOUR CHOICE, SUCH : 1. A PHYSICIAN OF YOUR CHOICE OR, IF YOU WISH TO FOLLOW-UP WITHIN THE [facility], MAY TRY THESE OPTIONS (CLINIC APPOINTMENTS AVAILABLE ON [id number]-[id number] BASIS): 1. SCHEDULE AN APPOINTMENT ONLINE AT WWW.[facility] 2. OR CALL THE [facility]ESS [facility]ENTER AT OR 3. OR CALL YOUR [facility] PHYSICIAN'S OFFICE DIRECTLY IF YOU ARE ALREADY AN ESTABLISHED [facility] PATIENT. After hours care nurse access center available by calling [phone] 24 hours 7 days per week. Dinorah VELA [facility] iguelina Paiz RN - 08/10/2019 2:00 PM CST Ashly Sylvester is a 34 year old female Chief Complaint Patient presents with Cough x 3 wks, dry, pt denies fever, pt had laparoscopic cholecysectomy on 08/05/2019 WHEEZING Vitals: 08/10/19 1403 BP: 120/78 Pulse: 77 Resp: 20 Temp: 37 C (98.6 F) TempSrc: Oral SpO2: 97% Weight: 135 lb 12.8 oz (61.6 kg) Height: 5' 5" (1.651 m) [address] Patient AAOx4 and in no acute distress. All Vitals taken, allergies and all medications reviewed, fall risk assessed. Pain level 0. documented in this encounter Plan of Treatment Health Maintenance Due Date Last Done Comments VARICELLA VACCINES (1 of 2 1985 - 2-dose childhood series) INFLUENZA VACCINE (#1) 2019 PAP SMEAR 01/25/2021 01/25/2018, 02/23/2016, 10/24/2012, Additional history exists DTaP,Tdap,and Td Vaccines 06/05/2021 06/05/2011 (2 - Td) PNEUMOCOCCAL 0-64 YEARS Aged Out No longe r eligible COMBINED SERIES based on patient 's age to complete this topic documented as of this encounter Results Not on filedocumented in this encounter Visit Diagnoses Diagnosis Bronchitis - Primary Bronchitis, not specified as acute or ch ronic documented in this encounter Insurance Payer Benefit Plan / Subscriber ID Effective Dates Phone Addre ss Type Group [facility] MEDICAID OF xxxxxxxxx 2019-Present [phone] [address] Medicaid [place] [id number] [place] [phone] (Home) [place] [address] documented as of this encounter
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
--- OUTSIDE RECORDS SUMMARY | 2019-09-24 18:40 | XMS REPORT | Summary of Care ---
:1985 Author Organization [facility] - Health Address [address] [place] [address] Care Team Providers Name Role Phone AlexisMason Primary Care Provider Petty Mast Insurance Hmo Reason for Visit Reason Comments Vomiting Headache Auth/Cert Status Reason Specialty Diagnoses / Referred By Referred To Procedures Contact Contact Emergency Medicine Diagnoses HEADACHE,COUGH [facility] Emergency Dept [address] [place] [address] [place] [address] Fax: Encounter Details Date Type Department Care Team Description 09/13/2019 Emergency ADC-Emergency Drever, Lida G, Vomiting, intractability of vomiting not specified, presence of nausea not specified, unspecified vomiting type (Primary Dx); 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 Latex Other - See comments 01/25/2018 Sulfa (Sulfonamide Unknown - See 04/01/2009 Antibiotics) comments documented as of this encounter (statuses as of 09/13/2019) Medications Medication Sig Dispensed Refills Start Date [...] needed Bronchitis for Wheezing or Chest tightness. cefdinir 300 mg Take 1 capsule 14 capsule 0 09/13/201909/19/ 02 Active capsuleIndications: by mouth 2 (two) 0 Urinary tract infection times daily for with hematuria, site 7 days. unspecified ondansetron (ZOFRAN ODT) Take 1 tablet by 12 tablet 0 09/13/19 20 Active 4 mg disintegrating mouth every 8 tabletIndications: (eight) hours as Nonintractable headache, needed for unspecified chronicity Nausea and pattern, unspecified Vomiting (N/V). headache type documented as of this encounter (statuses as of 09/13/2019) Active Problems Problem Noted Date Dysuria 05/09/2019 [...] as of this encounter (statuses as of 09/13/2019) Resolved Problems Problem Noted Date Resolved Date Intractable migraine without status migrainosus 02/23/2016 01/25/2018 Overview: Managed with metoprolol Candidiasis of vulva and vagina 02/06/2015 01/26/20 18 Vaginal leukorrhea 09/04/2014 02/06/2015 Overview: ICD10 Diagnosis Term Dermatology Physician Assistant Utility Pain pelvic 02/11/2013 09/04/2014 Abdominal pain 02/11/2013 09/04/2014 Overview: ICD10 Diagnosis Term Dermatology Physician Assistant Utility Anxiety 02/11/2013 02/06/2015 Irregular menstrual cycle 02/11/2013 09/04/2014 documented as of this encounter (statuses as of 09/13/2019) Immunizations Name Administration Dates Next Due Tdap [...] Sign Reading Time Taken Comments Blood Pressure 127/79 09/13/2019 6:10 PM CDT Pulse 88 09/13/2019 6:10 PM CDT Temperature 36.6 C (97.8 F) 09/13/2019 4:56 PM CDT Respiratory Rate 17 09/13/2019 6:10 PM CDT Oxygen Saturation 100% 09/13/2019 6:10 PM CDT Inhaled Oxygen Concentration - - Weight 60.8 kg (134 lb) 09/13/2019 4:56 PM CDT Height - - Body Mass Index 22.3 08/10/2019 2:03 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 Headache, Unspecified (Algerian)documented in this encounter Plan of Treatment Health [...] Procedures Procedure Name Priority Date/Time Associated Diagnosis Comme nts CORONAVIRUS COVID-19 STAT 09/13/2019 5:27 Vomiting, Res ults for this TESTING PM CDT intractability of procedure are in vomiting not the results specified, presence of secti on. nausea not specified, unspecified vomiting type CBC WITH STAT 09/13/2019 5:27 Vomiting, Results for this DIFFERENTIAL PM CDT intractability of procedure are in vomiting not the results specified, presence of secti on. nausea not specified, unspecified vomiting type ADC / [facility] - DRUG STAT 09/13/2019 5:27 Vomiting, Results for this SCREEN TRIAGE PM CDT intractability of procedure are in vomiting not the results specified, presence of secti on. nausea not specified, unspecified vomiting type URINALYSIS STAT 09/13/2019 5:27 Vomiting, Results for this PM CDT intractability of procedure are in vomiting not the results specified, presence of secti on. nausea not specified, unspecified vomiting type CBC WITH STAT 09/13/2019 5:27 Vomiting, Results for this DIFFERENTIAL PM CDT intractability of procedure are in vomiting not the results specified, presence of secti on. nausea not specified, unspecified vomiting type COMP. METABOLIC STAT 09/13/2019 5:27 Vomiting, Results for this PANEL (91189) PM CDT intractability of procedure are in vomiting not the results specified, presence of secti on. nausea not specified, unspecified vomiting type POCT TEST JEREL 09/13/2019 5:25 Vomiting, Resu lts for this PM CDT intractability of procedure are in vomiting not the results specified, presence of secti on. nausea not specified, unspecified vomiting type documented in this encounter Results CBC WITH DIFFERENTIAL (09/13/2019 5:27 PM CDT) Pathologist Sig nature WBC 11.37 (H) 4.30 - 11.10 [facility] 10*3/L [facility] RBC 4.67 3.93 - 5.25 [facility] 10*6/L [facility] HGB 15.0 11.6 - 15.0 [facility] g/dL [facility] HCT 43.8 35.7 - 45.2 % [facility] MCV 93.8 80.6 - 95.5 fL [facility] MCH 32.1 25.9 - 32.8 pg [facility] MCHC 34.2 31.6 - 35.1 [facility] g/dL [facility] RDW-SD 41.5 39.0 - 49.9 fL [facility] RDW-CV 11.9 (L) 12.0 - 15.5 % [facility] PLT 323 166 - 358 [facility] 10*3/L [facility] MPV 9.6 9.5 - 12.9 fL [facility] NRBC/100 WBC 0.0 0.0 - 10.0 /100 [facility] WBCs [facility] NRBC x10^3 <0.01 10*3/L [facility] GRAN MAT (NEUT) % 84.5 % [facility] IMM GRAN % 0.40 % [facility] LYMPH % 10.8 % [facility] MONO % 3.9 % [facility] EOS % 0.1 % [facility] BASO % 0.3 % [facility] GRAN MAT x10^3(ANC) 9.61 (H) 1.88 - 7.09 [facility] 10*3/uL [facility] IMM GRAN x10^3 0.05 0.00 - 0.06 [facility] 10*3/uL [facility] LYMPH x10^3 1.23 (L) 1.32 - 3.29 [facility] 103/uL [facility] MONO x10^3 0.44 0.33 - 0.92 [facility] 103/uL [facility] EOS x10^3 <0.03 (L) 0.03 - 0.39 [facility] 10*3/uL [facility] BASO x10^3 0.03 0.01 - 0.[address]/uL [facility] Specimen Blood - VENOUS Performing Organization Address City/State/Zipcode Phone Number [facility] CLIA: [id number], [address] [place] [address] ADC / C - DRUG SCREEN TRIAGE (09/13/2019 5:27 PM CDT) BENZO U Negative Negative [facility] NICOLE U Negative Negative [facility] AMPHET Negative Negative [facility] THC Negative Negative [facility] METHADONE Negative Negative [facility] Meth U Negative Negative [facility] OPIATES Presumptive Negative [facility] Positive (A) [facility] Cocaine Metabolite Negative Negative [facility] PROPOXY Negative Negative [facility] Tric U Negative Negative [facility] PCP Negative Negative [facility] OXYCOD Negative Negative [facility] Specimen Urine - URINE, CLEAN CATCH Narrative Performed At Urine Drug Cutoff Ranges [facility] Benzodiazepines: 150 ng/mL Barbiturates: 200 ng/mL Amphetamine: 500 ng/mL Cannabinoids: 50 ng/mL Methadone: 200 ng/mL Methamphetamine: 500 ng/mL Opiates: 100 ng/mL or 2000 ng/mL Cocaine: 150 ng/mL Propoxyphene: 300 ng/mL Tricyclics: 300 ng/mL Oxycodone: 100 ng/mL PCP: 25 ng/mL The results are to be used only for medical (i.e., treatment) purposes. Unconfirmed screening results must not be used for non-medical purposes (e.g., employment testing, legal testing). Performing Organization Address [facility] Phone Number [facility] CLIA: [id number], [address] [place] [address] [address] [facility] CORONAVIRUS COVID-19 TESTING (09/13/2019 5:27 PM CDT) Pathologist Sig nature SARS-CoV-2 Not Detected Not Detected [facility] Specimen Swab - NASOPHARYNGEAL SWAB Narrative Performed At [facility] COVID-19 Assay is an isothermal nucleic [facility] acid amplification test intended for the qualitative detection of nucleic acid from SARS-CoV-2 viral RNA in nasopharyngeal (CONVEYOR WORKER) specimens. It is used under Emergency Use Authorization (EUA) by FDA. The limit of detection (LOD) of the assay is 125 Genome Equivalents/mL. A positive result is indicative of the presence of SARS-CoV-2 RNA. Clinical correlation with patient history and other diagnostic information is necessary to determine patient infection status. A negative (Not Detected) result does not preclude SARS-CoV-2 infection. Clinical correlation with patient history and other diagnostic information should be used in patient management decisions. Invalid: Please collect a new specimen for repeat patient testing if clinically indicated. Performing Organization Address [facility] Phone Number [facility] CLIA: [id number], [address] [place] [place] [address] URINALYSIS (09/13/2019 5:27 PM CDT) [facility] Sig nature APPEARANCE Hazy (A) Clear [facility] COLOR Yellow Yellow [facility] PH 5.0 4.8 - 8.0 [facility] SP GRAVITY 1.019 1.003 - 1.030 [facility] GLU U QUAL Normal Normal [facility] BLOOD 1+ (A) Negative [facility] KETONES 80 mg/dL (A) Negative [facility] PROTEIN Negative Negative [facility] UROBILIN Normal Normal [facility] BILIRUBIN Negative Negative [facility] NITRITE Negative Negative [facility] LEUK ALEXANDRE 75/uL (A) Negative [facility] RBC/HPF 5 (H) 0 - 3 HPF [facility] WBC/HPF 9 (H) 0 - 5 HPF [facility] BACTERIA Many (A) Negative [facility] MUCOUS Marked (A) Negative LPF [facility] SQ EPITH 6 HPF [facility] HYAL CAST 2 <=2 LPF [facility] GRAN CASTS 3 (H) <=1 LPF [facility] Specimen Urine - URINE, CLEAN CATCH Performing Organization Address City/State/Zipcode Phone Number [facility] CLIA: [id number], [address] [place], [place] [address] COMP. METABOLIC PANEL (814[address]) (09/13/2019 5:27 PM CDT) Pathologist Sig nature NA 143 135 - 145 [facility] mmol/L [facility] K 4.1 3.5 - 5.0 [facility] mmol/L [facility] CL 104 98 - 108 mmol/L [facility] CO2 TOTAL 26 23 - 31 mmol/L [facility] AGAP 13 2 - 16 [facility] BUN 10 7 - 23 mg/dL [facility] GLUCOSE 119 (H) 70 - 110 mg/dL [facility] CREATININE 0.54 0.50 - 1.04 [facility] mg/dL [facility] TOTAL BILI 0.6 0.1 - 1.1 mg/dL [facility] CALCIUM 10.2 8.6 - 10.6 [facility] mg/dL [facility] T PROTEIN 8.4 (H) 6.3 - 8.2 g/dL [facility] ALBUMIN 4.9 3.5 - 5.0 g/dL [facility] ALK PHOS 78 34 - 122 U/L [facility] ALTv 12 5 - 35 U/L [facility] AST(SGOT) 25 13 - 40 U/L [facility] eGFR Calculation 128.5 mL/min/1.73m2 [facility] ([facility] Cuban) eGFR Calculation 155.7 mL/min/1.73m2 [facility] () [facility] Specimen Blood - VENOUS Narrative Performed At Association of Glomerular Filtration Rate (GFR) [facility] and Staging of Kidney Disease* [...] tests). Performing Organization Address City/State/Zipcode Phone Number [facility] CLIA: [id number], [address] [place] [place] [address] POCT TEST (09/13/2019 5:25 PM CDT) Pathologist Sig nature POCT PREG negative On board controls acceptable present with C Line Specimen Urine - URINE, CLEAN CATCH documented in this encounter Visit Diagnoses Diagnosis Vomiting, intractability of vomiting not specified, presence of nausea not specified, unspecified vomiting type - Primary Urinary tract infection with hematuria, site unspecified Nonintractable headache, unspecified chr onicity pattern, unspecified headache type documented in this encounter Administered Medications Medication Order MAR Action Action Date Dose Rate Site diphenhydrAMINE (BENADRYL) Given 09/13/2019 5:14 PM CDT 25 mg injection 25 mg 25 mg, Slow IV Push, ONCE, 1 dose, Mon09/13/19 at 1815, STAT ketorolac (TORADOL) injection 30 mg Given 09/13/2019 5:25 PM CDT 30 mg 30 mg, Slow IV Push, ONCE, 1 dose, Mon09/13/19 at 1815, Routine, sports [employer] membership advisors approving Restricted medication: LIDA MACARIO metoclopramide HCl (REGLAN) injection 10 mg Given 09/13/2019 5:15 PM CDT 10 mg 10 mg, Slow IV Push, ONCE, 1 dose, Mon09/13/19 at 1815, JEREL NaCl 0.9% (NS) IV infusion 1,000 New Bag 09/13/2019 5:14 PM C DT 1,000 mL 999 mL/hr mL at 999 mL/hr, Intravenous, ONCE, 1 dose, Mon09/13/19 at 1815, Routine documented in this encounter Insurance Payer Benefit Plan / Subscriber ID Effective Phone Address [facility] xxxxxxxxx 2019-Prese [address] Medic aid HEALTH CHOICE - [place] [id number] 1 MANAGED MEDICAID [place], [place] [phone] documented as of this encounter"
[2019-09-24 19:38] LABS: Absolute Lymphocytes (CBC) 2.3 K/uL (0.7-4.9); Basophils % 1.3 % (0-1.3); Hematocrit 42.2 % (36.0-45.0); Lymphocytes % 34.2 % (15.3-44.8); RBC Red Blood Cell Count 4.47 M/uL (3.86-4.86)
[2019-09-24 19:44] LABS: Protime INR 0.92
[2019-09-24 19:57] LABS: ALT/SGPT 15 U/L (12-78); AST/SGOT 16 U/L (15-37); Alkaline Phosphatase 67 U/L (45-117); BUN Blood Urea Nitrogen 7 mg/dL (7-18); Bicarbonate 28 mmol/L (21-32); Bilirubin Direct < 0.1 mg/dL (0-0.2); Glucose Level 97 mg/dL (74-106); Magnesium 2.3 mg/dL (1.8-2.4); NT PRO-BNP 75 pg/mL (<125); Protein, Total 7.9 g/dL (6.4-8.2); Sodium Level 141 mmol/L (136-145); Troponin (Emerg Dept Use Only) < 0.02 ng/mL (0.0-0.045)
[2019-09-24 20:23] LABS: Bilirubin Total 0.2 mg/dL (0.2-1.0)
[2019-09-24 20:48] LABS: Urine Blood NEGATIVE (NEG); Urine Glucose NEGATIVE (NEG); Urine Protein NEGATIVE (NEG); Urine pH 5.5 (5.0-7.0)
--- NOTE | 2019-09-24 21:33 | RAD REPORT ---
EXAM DESCRIPTION: CT - Head Brain Wo Cont - 09/24/2019 9:06 pm CLINICAL HISTORY: MENTAL STATUS CHANGE Headache, drowsiness COMPARISON: Facial Bones W/ Mpr dated 05/08/2016; HEAD BRAIN W O CONTRAST dated 03/18/2009; Head mayo o dated 09/24/2019; Head C Spine Mpr Wo Con dated 05/08/2016 TECHNIQUE: All CT scans are performed using dose optimization technique as appropriate and may inclu de automated exposure control or mA/KV adjustment according to patient size. FINDINGS: A moderate sized area of diminished density is seen within the subcortical white matter of the left temporoparietal region with evidence of possible adjacent cortical thickening.No hemorrhage or hydrocephalus evident.No midline shift is seen. The paranasal sinuses and mastoids are clear. The calvarium is intact. IMPRESSION: Moderate hypodensity is present in the subcortical white matter left temporoparietal reg ion with possible adjacent cortical thickening. Differential considerations include subacute CVA, ce rebritis and neoplasm. Recommend MRI brain with contrast for further assessment.
--- NOTE | 2019-09-24 21:34 | RAD REPORT ---
EXAM DESCRIPTION: CT - Head angio - 09/24/2019 9:06 pm CLINICAL HISTORY: headache;Mental status change Headache, drowsiness COMPARISON: Head Brain Wo Cont dated 09/24/2019; Facial Bones W/ Mpr dated 05/08/2016 TECHNIQUE: CT angiography of the head was performed with MIPs. All CT scans are performed using dose optimization technique as appropriate and may include automated exposure control or mA/KV adjustment according to patient size. FINDINGS: No evidence of aneurysm is detected. No flow-limiting stenosis or vascular malformation id entified. Antegrade flow is seen in the vertebral arteries. The vertebral arteries are codominant. The visualized dural venous sinuses are patent. IMPRESSION: No significant flow abnormality is detected.
[2019-09-24] MEDS ORDERED: ASPIRIN 81 MG CHEWABLE TABLET ONE (22:15)
[2019-09-24] MEDS ORDERED: FOLIC ACID 5 MG/ML VIAL ONE (22:16)
--- NOTE | 2019-09-24 22:52 | EDPHYS ---
Physician Documentation [facility] Name: Ashly Sylvester Age: 34 yrs Sex: Female : 1985 Arrival Date: 09/24/2019 Time: 18:36 Bed 2 Private MD: Jeffry Douglas W ED Physician Brendan Wilks HPI: 09/23 18:58 This 34 yrs old Female presents to ER via Ambulatory with complaints of cp Memory Loss. 18:58 The patient's problem is reported as altered mental status, confused. cp 18:58 Onset: The symptoms/episode began/occurred 09-13-2019. Duration: The episode is cp continuous. Associated signs and symptoms: Pertinent positives: headache, nausea, vomiting, Pertinent negatives: abdominal pain, chest pain, trauma. Patient's baseline: Neuro: alert and fully oriented, Motor: no deficits, Ambulation: walks without assistance, Speech: normal. Historical: - Allergies: 18:50 Sulfa (Sulfonamide Antibiotics); ll1 18:50 Zithromax; ll1 - PMHx: 18:50 Migraines; Hypertension; ll1 - PSHx: 18:50 Appendectomy; C5-C6 plate; Cholecystectomy; ll1 ROS: 19:05 Constitutional: Negative for body aches, chills, fever, poor PO intake. cp 19:05 Neck: Negative for pain with movement, pain at rest, stiffness. cp 19:05 Cardiovascular: Negative for chest pain, edema, palpitations. 19:05 Respiratory: Negative for cough, shortness of breath, wheezing. 19:05 Abdomen/GI: Positive for nausea and vomiting, Negative for abdominal pain, diarrhea, constipation. 19:05 Neuro: Positive for altered mental status, headache, Negative for gait disturbance, weakness. 19:05 All other systems are negative. Exam: 19:10 Constitutional: The patient appears in no acute distress, alert, awake, cp non-diaphoretic, non-toxic, well developed, well nourished. 19:10 Head/Face: Normocephalic, atraumatic. cp 19:10 Eyes: Pupils equal round and reactive to light, extra-ocular motions intact. Lids and cp lashes normal. Conjunctiva and sclera are non-icteric and not injected. Cornea within normal limits. Periorbital areas with no swelling, redness, or edema. ENT: Nares patent. No nasal discharge, no septal abnormalities noted. Tympanic membranes are normal and external auditory canals are clear. Oropharynx with no redness, swelling, or masses, exudates, or evidence of obstruction, uvula midline. Mucous membranes moist. Chest/axilla: Normal chest wall appearance and motion. Nontender with no deformity. No lesions are appreciated. Cardiovascular: Regular rate and rhythm with a normal S1 and S2. No gallops, murmurs, or rubs. Normal PMI, no JVD. No pulse deficits. Respiratory: Lungs have equal breath sounds bilaterally, clear to auscultation and percussion. No rales, rhonchi or wheezes noted. No increased work of breathing, no retractions or nasal flaring. Abdomen/GI: Soft, non-tender, with normal bowel sounds. No distension or tympany. No guarding or rebound. No evidence of tenderness throughout. 19:10 Neuro: Orientation: to person, place, situation, Mentation: able to follow commands, Cerebellar function: is grossly normal, Motor: moves all fours, strength is normal, Sensation: is normal, Gait: is steady, at a normal pace, without difficulty. 19:10 Skin: cellulitis, is not appreciated, no rash present. cp 19:24 ECG was reviewed by the Attending Physician. cp 22:10 Radiologist reports: moderate hypodense area left temporoparietal region cp Vital Signs: 18:46 BP 138 / 100; Pulse 83; Resp 18; Temp 97.0; Pulse Ox 97% ; Pain 3/10; ll1 20:34 BP 138 / 95; Pulse 80; Resp 18; Pulse Ox 98% ; ea 21:55 BP 128 / 68; Pulse 78; Resp 18; Pulse Ox 98% ; ea 22:50 BP 135 / 92; Pulse 64; Resp 18; Pulse Ox 99% ; ea 23:50 BP 127 / 80; Pulse 80; Resp 18; Pulse Ox 99% on R/A; ea NIH Stroke Scale Scores: 19:10 NIHSS Score: 2 cp MDM: 18:54 Patient medically screened. cp 19:15 ED course: VSS. Patient is not a candidate for tpa as onset of symptoms were 09-13-2019.cp 19:30 Differential diagnosis: CVA, TIA, metabolic disorder, drug effects. cp 22:10 Data reviewed: vital signs, nurses notes, lab test result(s), EKG, radiologic studies, cp CT scan. 22:13 Physician consultation: Jeffry Douglas MD was called at 22:10, was contacted at 22:10, cp regarding consult, patient's condition, would like admission per Dr. Kaushal Padgett MD would like further tests performed, MRI. 22:19 Physician consultation: Kaushal Padgett MD was called at 22:15, was contacted at 22:15, cp regarding admission, to the telemetry unit. patient's condition. 09/23 18:57 Order name: Basic Metabolic Panel; Complete Time: 20:32 cp 09/23 18:57 Order name: CBC with Diff; Complete Time: 20:15 cp 09/23 20:15 Interpretation: Reviewed. 09/23 18:57 Order name: LFT's; Complete Time: 20:32 cp 09/23 20:32 Interpretation: Normal except: GLOB 3.9; A/G 1.0. cp 09/23 18:57 Order name: Magnesium; Complete Time: 20:32 cp 09/23 18:57 Order name: NT PRO-BNP; Complete Time: 20:32 cp 09/23 18:57 Order name: PT-INR; Complete Time: 20:15 cp 09/23 20:15 Interpretation: Reviewed. 09/23 18:57 Order name: Troponin (emerg Dept Use Only); Complete Time: 20:32 cp 09/23 19:11 Order name: Urine Dipstick--Ancillary (enter results); Complete Time: 22:02 [facility] 09/23 19:11 Order name: Urine --Ancillary (enter results); Complete Time: 22:02 [facility] 09/23 22:13 Order name: UDS; Complete Time: 00:02 cp 09/23 23:09 Order name: Comprehensive Metabolic Panel [facility] 09/23 23:09 Order name: Comprehensive Metabolic Panel; Complete Time: 00:02 [facility] 09/23 23:09 Order name: Protime (+INR) [facility] 09/23 23:09 Order name: Protime (+INR); Complete Time: 00:02 [facility] 09/23 18:57 Order name: EKG; Complete Time: 18:58 cp 09/23 18:57 Order name: Cardiac monitoring; Complete Time: 19:22 cp 09/23 18:57 Order name: EKG - Nurse/Tech; Complete Time: 19:23 cp 09/23 18:57 Order name: IV Saline Lock; Complete Time: 19:23 cp 09/23 18:57 Order name: Labs collected and sent; Complete Time: 19:23 cp 09/23 18:59 Order name: CT Head Angio; Complete Time: 22:02 cp 09/23 20:50 Order name: CT Head Brain wo Cont; Complete Time: 22:02 cp 09/23 23:09 Order name: CONS Pharmacy Consult [facility] 09/23 23:09 Order name: CONS Physician Consult [facility] 09/23 23:09 Order name: Heart Healthy [facility] 09/23 23:09 Order name: PTT, Activated Partial Thromb [facility] 09/23 23:09 Order name: PTT, Activated Partial Thromb; Complete Time: 00:02 [facility] 09/23 23:10 Order name: Lipid Profile [facility] 09/23 23:13 Order name: Stroke Protocol [facility] 09/23 18:57 Order name: O2 Per Protocol; Complete Time: 19:17 cp 09/23 18:57 Order name: O2 Sat Monitoring; Complete Time: 19:17 cp 09/23 18:57 Order name: Urine Dipstick-Ancillary (obtain specimen); Complete Time: 19:17 cp 09/23 18:57 Order name: Urine Test (obtain specimen); Complete Time: 19:17 cp EC:24 Rate is 68 beats/min. Rhythm is regular. [place] interval is normal. QRS interval is normal. cp QT interval is normal. Interpreted by me. Reviewed by me. Administered Medications: 22:08 CANCELLED (Physician Discretion): Aspirin 81 mg PO once cp 22:22 Drug: foLIC Acid 1 mg Route: IVPB; Site: left antecubital; ea 09/24 00:13 Follow up: IV Status: Completed infusion ea Disposition: 09/23 23:15 Chart complete. cp 09/24 12:02 Co-signature as Attending Physician, Brendan Wilks MD I agree with the assessment and kdr plan of care. Disposition: 09/24/19 22:51 Hospitalization ordered by Kaushal Padgett for Observation. Preliminary diagnosis is Cerebral vascular accident. - Bed requested for Telemetry/MedSurg (observation). - Status is Observation. ea - Condition is Stable. - Problem is new. - Symptoms are unchanged. NIH Stroke Scale - NIH Stroke Score Date: 09/24/2019 Time: 19:10 Total Score = 2 1a. Level of Consciousness (LOC) - 0(Alert) 1b. Level of Consciousness (LOC) (Year \T\ Age) - 2(Neither) 1c. LOC Commands (Open \T\ Closes Eyes/Clinic Md Associate) - 0(Both) 2. Best Gaze (Lateral Gaze Paresis) - 0(Normal) 3. Visual Field Loss - 0(No visual loss) 4. Facial Palsy - 0(Normal) 5a. Left Arm: Motor (10-second hold) - 0(No drift) 5b. Right Arm: Motor (10-second hold) - 0(No drift) 6a. Left Leg: Motor (5-second hold - always test supine) - 0(No drift) 6b. Right Leg: Motor (5-second hold - always test supine) - 0(No drift) 7. Limb Ataxia (finger/nose \T\ heel/mancera - test with eyes open) - 0(Absent) 8. Sensory Loss (pinprick arms/legs/face) - 0(Normal) 9. Best Language: Aphasia (description/naming/reading) - 0(No aphasia) 10. Dysarthria (speech clarity - read or repeat words) - 0(Normal) 11. Extinction and Inattention (visual/tactile/auditory/spatial/personal) - 0(No abnormality) Initials: cp Signatures: Dispatcher [employer] EDMS Brendan Wilks MD MD kdr Lasagna, Tonya, RN RN tl1 Quincy Cerda PA PA cp Maddie Perez RN RN ea Lewis, Lynsay, RN RN ll1 Corrections: (The following items were deleted from the chart) 09/23 22:08 22:05 Aspirin 81 mg PO once ordered. cp cp 22:55 22:51 Hospitalization Ordered by Kaushal Padgett MD for Observation. Preliminary cp diagnosis is Cerebral infarction. Bed requested for Telemetry/MedSurg (observation). Status is Observation. Condition is Stable. Problem is new. Symptoms are unchanged. cp 23:20 22:55 09/24/2019 22:51 Hospitalization Ordered by Kaushal Padgett MD for tl1 Observation. Preliminary diagnosis is Cerebral vascular accident. Bed requested for Telemetry/MedSurg (observation). Status is Observation. Condition is Stable. Problem is new. Symptoms are unchanged. cp :22 23:20 09/24/2019 22:51 Hospitalization Ordered by Kaushal Padgett MD for tl1 Observation. Preliminary diagnosis is Cerebral vascular accident. Bed requested for Telemetry/MedSurg (observation). Status is Observation. Condition is Stable. Problem is new. Symptoms are unchanged. tl1 09/24 00:13 09/23 23:22 09/24/2019 22:51 Hospitalization Ordered by Kaushal Padgett MD for ea Observation. Preliminary diagnosis is Cerebral vascular accident. Bed requested for Telemetry/MedSurg (observation). Status is Observation. Condition is Stable. Problem is new. Symptoms are unchanged. tl1 09/25 00:06 09/23 21:45 Radiologist reports: moderate hypodense area left temporoparietal cp region cp
--- NOTE | 2019-09-24 22:52 | ER ---
Nurse's Notes [facility] Name: Ashly Sylvester Age: 34 yrs Sex: Female : 1985 Arrival Date: 09/24/2019 Time: 18:36 Bed 2 Private MD: Jeffry Douglas W Diagnosis: Cerebral vascular accident Presentation: 09/23 18:46 Chief complaint: Friend and/or Co-Worker states: Family member states memory loss and ll1 confusion began September 12. Was seen by a urgent care and [facility]. Dr. Douglas did MRI today. They called her and told her to go straight to ER for small blood clot in the brain. + nausea. Coronavirus screen: Proceed with normal triage. Patient denies a cough. Patient denies shortness of breath or difficulty breathing. Patient denies measured and/or subjective temperature greater than 100.4F prior to today's visit. Patient denies travel on a cruise ship or to a country the [facility] currently lists as an affected area. Patient denies contact with known and/or suspected case of COVID-19. Covid test was negative. Ebola Screen: Patient denies travel to an Ebola-affected area in the 21 days before illness onset. Initial Sepsis Screen: Does the patient meet any 2 criteria? No. Patient's initial sepsis screen is negative. Does the patient have a suspected source of infection? No. Patient's initial sepsis screen is negative. Risk Assessment: Do you want to hurt yourself or someone else? Patient reports no desire to harm self or others. Onset of symptoms was September 13, 2019. 18:46 Method Of Arrival: Ambulatory ll1 18:46 Acuity: JOSE G 2 ll1 Historical: - Allergies: 18:50 Sulfa (Sulfonamide Antibiotics); ll1 18:50 Zithromax; ll1 - PMHx: 18:50 Migraines; Hypertension; ll1 - PSHx: 18:50 Appendectomy; C5-C6 plate; Cholecystectomy; ll1 Screenin:34 Abuse screen: Denies threats or abuse. Nutritional screening: No deficits noted. ea Tuberculosis screening: No symptoms or risk factors identified. Fall Risk IV access (20 points). Assessment: 19:18 General: Appears in no apparent distress. Behavior is calm, cooperative, appropriate ea for age. Pain: Denies pain. Neuro: Level of Consciousness is awake, alert, obeys commands, Oriented to person. Cardiovascular: Patient's skin is warm and dry. Respiratory: Airway is patent Respiratory effort is even, unlabored, Respiratory pattern is regular, symmetrical. Derm: Skin is pink, warm \T\ dry. 20:34 Reassessment: Patient and/or family updated on plan of care and expected duration. Pain ea level reassessed. Patient is alert, oriented x 3, equal unlabored respirations, skin warm/dry/pink. 21:45 Reassessment: Patient and/or family updated on plan of care and expected duration. Pain ea level reassessed. Patient is alert, oriented x 3, equal unlabored respirations, skin warm/dry/pink. 22:24 Reassessment: Patient and/or family updated on plan of care and expected duration. Pain ea level reassessed. Patient is alert, oriented x 3, equal unlabored respirations, skin warm/dry/pink. 23:04 Reassessment: Patient and/or family updated on plan of care and expected duration. Pain ea level reassessed. Patient is alert, oriented x 3, equal unlabored respirations, skin warm/dry/pink. 09/24 00:12 Reassessment: Patient and/or family updated on plan of care and expected duration. Pain ea level reassessed. Patient is alert, oriented x 3, equal unlabored respirations, skin warm/dry/pink. Pt admitted to second floor, pt left ED via stretcher per tech. Pt tolerating well. Vital Signs: 09/23 18:46 BP 138 / 100; Pulse 83; Resp 18; Temp 97.0; Pulse Ox 97% ; Pain 3/10; ll1 20:34 BP 138 / 95; Pulse 80; Resp 18; Pulse Ox 98% ; ea 21:55 BP 128 / 68; Pulse 78; Resp 18; Pulse Ox 98% ; ea 22:50 BP 135 / 92; Pulse 64; Resp 18; Pulse Ox 99% ; ea 23:50 BP 127 / 80; Pulse 80; Resp 18; Pulse Ox 99% on R/A; ea NIH Stroke Scale Scores: 19:10 NIHSS Score: 2 cp ED Course: 18:36 Patient arrived in ED. 5 18:36 Jeffry Douglas MD is Private Physician. [facility] 18:43 Page, Quincy, PA is PHCP. cp 18:43 Brendan Wilks MD is Attending Physician. cp 18:49 Triage completed. ll1 18:50 Arm band placed on Patient placed in an exam room, on a stretcher. ll1 19:00 Urine collected: clean catch specimen, clear. sg 19:03 Radiology exam delayed due to lab results not completed at this time. (BUN/Creatinine). vm2 19:18 Radiology exam delayed due to lab results not completed at this time. (BUN/Creatinine). vm2 19:18 Inserted saline lock: 20 gauge in left antecubital area, using aseptic technique. Blood ea collected. 19:19 Maddie Perez, RN is Primary Nurse. ea 19:20 Patient has correct armband on for positive identification. Bed in low position. Call ea light in reach. Side rails up X2. 21:06 CT Head Angio In Process Unspecified. EDMS 21:06 CT Head Brain wo Cont In Process Unspecified. EDMS 22:49 Kaushal Padgett MD is Hospitalizing Provider. cp 09/24 00:11 No provider procedures requiring assistance completed. Patient admitted, IV remains in ea place. Administered Medications: 09/23 22:08 CANCELLED (Physician Discretion): Aspirin 81 mg PO once cp 22:22 Drug: foLIC Acid 1 mg Route: IVPB; Site: left antecubital; ea 09/24 00:13 Follow up: IV Status: Completed infusion ea Outcome: 09/23 22:51 Decision to Hospitalize by Provider. cp 09/24 00:11 Admitted to Med/surg accompanied by tech, room 216, with chart, Report called to apple Moreau RN Condition: stable Instructed on the need for admit, Demonstrated understanding of instructions. 00:13 Patient left the ED. apple NIH Stroke Scale - NIH Stroke Score Date: 09/24/2019 Time: 19:10 Total Score = 2 1a. Level of Consciousness (LOC) - 0(Alert) 1b. Level of Consciousness (LOC) (Year \T\ Age) - 2(Neither) 1c. LOC Commands (Open \T\ Closes Eyes/Operation Specialist) - 0(Both) 2. Best Gaze (Lateral Gaze Paresis) - 0(Normal) 3. Visual Field Loss - 0(No visual loss) 4. Facial Palsy - 0(Normal) 5a. Left Arm: Motor (10-second hold) - 0(No drift) 5b. Right Arm: Motor (10-second hold) - 0(No drift) 6a. Left Leg: Motor (5-second hold - always test supine) - 0(No drift) 6b. Right Leg: Motor (5-second hold - always test supine) - 0(No drift) 7. Limb Ataxia (finger/nose \T\ heel/mancera - test with eyes open) - 0(Absent) 8. Sensory Loss (pinprick arms/legs/face) - 0(Normal) 9. Best Language: Aphasia (description/naming/reading) - 0(No aphasia) 10. Dysarthria (speech clarity - read or repeat words) - 0(Normal) 11. Extinction and Inattention (visual/tactile/auditory/spatial/personal) - 0(No abnormality) Initials: cp Signatures: Dispatcher [employer] Elgin English RN RN Quincy Qureshi PA PA cp McGuire, [facility] Maddie Perez RN RN ea Gaskin, Ajare [facility] Alon Cifuentes RN RN ll1
[2019-09-24] MEDS ORDERED: MORPHINE 2 MG/ML SYR IV PRN (23:06)
[2019-09-24] MEDS ORDERED: ONDANSETRON 4 MG/2 ML VIAL IV PRN (23:06)
[2019-09-24] MEDS ORDERED: ACETAMINOPHEN 500 MG TAB PO PRN (23:06)
[2019-09-25 00:55] VITALS: O2SAT 98
[2019-09-25 01:20] VITALS: BMI 22.6
[2019-09-25] MEDS: NA CHLORIDE 0.9% 1,000 ML IV SCH ×2 (01:21→13:05)
--- NOTE | 2019-09-25 01:56 | P.HP ---
Certification for Inpatient Patient admitted to: Inpatient With expected LOS: >2 Midnights Patient will require the following post-hospital care: None Practitioner: I am a practitioner with admitting privileges, knowledge of patient current condition, hospital course, and medical plan of care. Services: Services provided to patient in accordance with Admission requirements found in Title 42 Section 412.3 of the Code of Federal Regulations Patient History Date of Service: 09/24/19 Reason for admission: Altered mental status; subacute CVA History of Present Illness: Patient is a 34-year-old female who has been having some confusion for the last week. She has gone to see a neurologist and had outpatient studies performed. According to the patient her MRI revealed that she had a stroke. She was sent to the ER by her neurologist to be further evaluated. In the emergency room a CT scan did reveal that patient had a questionable subacute infarct. According to radiology report, the CT scan revealed "moderate hypodensity in the subcortical white matter of the left temporoparietal region with possible adjacent cortical thickening." Patient's differential diagnosis includes subacute CVA, cerebritis and neoplasm. Patient will be admitted to the hospital for MRI stroke protocol. Pending MRI findings patient will get echo and carotid Doppler. We will get a lipid profile as well. Patient will be admitted for further workup of the abnormal and worrisome CT scan findings. Allergies Sulfa (Sulfonamide Antibiotics) [Sulfa(Sulfonamide Antibiotics)] Allergy (Mild, Verified 08/01/19 13:36) Hives azithromycin Allergy (Verified 08/01/19 13:36) Anaphylaxis latex Allergy (Verified 08/01/19 13:36) Itching/Hives/Rash, mouth sores Home Medications: Citalopram Hydrobromide [Citalopram HBr] 40 mg PO DAILY 09/25/19 Metoprolol Succinate [Toprol Xl*] 25 mg PO DAILY 09/25/19 norgestimate-ethinyl estradioL [[id number]-As-Bfhqqm Tablet] 1 tab PO DAILY 09/25/19 - Past Medical/Surgical History Has patient received pneumonia vaccine in the past: No Diabetic: No -: HTN -: migraines -: Cholecystectomy -: Appendectomy -: plate to c5 and c6 - Family History Father Medical History: Heart disease, Hypertension, Liver disease Mother Medical History: Hypertension, Lung disease, Cancer, Liver disease Sister Medical History: Hypertension - Social History Smoking Status: Former smoker Alcohol use: Yes CD- Drugs: No Caffeine use: Yes Place of Residence: Home Review of Systems 10-point ROS is otherwise unremarkable Physical Examination - Vital Signs Temperature: 98.0 F Blood Pressure: 133/95 Pulse: 71 Respirations: 16 Pulse Ox (%): 98 - Physical Exam General: Alert, In no apparent distress, Oriented x3 HEENT: Atraumatic, PERRLA, Mucous membr. moist/pink, EOMI, Sclerae nonicteric Neck: Supple, 2+ carotid pulse no bruit, No LAD, Without JVD or thyroid abnormality Respiratory: Clear to auscultation bilaterally, Normal air movement Cardiovascular: Regular rate/rhythm, Normal S1 S2, No murmurs Gastrointestinal: Normal bowel sounds, Soft and benign, Non-distended, No tenderness Musculoskeletal: No clubbing, No swelling, No tenderness Integumentary: No rashes Neurological: Normal gait, Normal speech, Normal strength at 5/5 x4 extr, Normal tone, Sensation intact, Cranial nerves 3-12 intact, Normal affect Lymphatics: No axilla or inguinal lymphadenopathy - Studies Laboratory Data (last 24 hrs) 09/24/19 19:13: PT 10.9, INR 0.92 09/24/19 19:13: WBC 6.8, Hgb 14.2, Hct 42.2, Plt Count 358 09/24/19 19:13: Sodium 141, Potassium 4.0, BUN 7, Creatinine 0.66, Glucose 97, Magnesium 2.3, Total Bilirubin 0.2, AST 16, ALT 15, Alkaline Phosphatase 67 Assessment & Plan - Problems (Diagnosis) (1) Acute CVA (cerebrovascular accident) Current Visit: Yes Status: Acute - Plan 1. Physical therapy evaluation 2. Speech therapy evaluation 3. Anti-platelet therapy and statin therapy 4. Lipid profile in the morning 5. MRI of the brain/echocardiogram/carotid Doppler 6. Physically patient is doing well and may benefit more from outpatient physical therapy 7. Neurology consultation 8. Blood pressure control 9. Neuro checks 10. GI and DVT prophylaxis Discharge Plan: Home Plan to discharge in: Greater than 2 days - Advance Directives Does patient have a Living Will: No Does patient have a Durable POA for Healthcare: No - Code Status/Comfort Care Code Status Assessed: Yes Code Status: Full Code Critical Care: No Time Spent Managing PTS Care (In Minutes): 45
[2019-09-25 02:21] LABS: Barbiturates NEGATIVE (NEGATIVE); Benzodiazepines NEGATIVE (NEGATIVE); Cocaine NEGATIVE (NEGATIVE); METHAMPHETAM NEGATIVE (NEGATIVE); Methadone NEGATIVE (NEGATIVE); Opiates NEGATIVE (NEGATIVE); Phencyclidine NEGATIVE (NEGATIVE); THC Cannibis NEGATIVE (NEGATIVE)
[2019-09-25 05:54] LABS: Absolute Lymphocytes (CBC) 3.3 K/uL (0.7-4.9); Basophils % 0.7 % (0-1.3); Hematocrit 41.2 % (36.0-45.0); Lymphocytes % 44.3 % (15.3-44.8); RBC Red Blood Cell Count 4.32 M/uL (3.86-4.86)
[2019-09-25 05:59] LABS: ALT/SGPT 14 U/L (12-78); AST/SGOT 12 U/L (15-37); Albumin 3.4 g/dL (3.4-5.0); Alkaline Phosphatase 58 U/L (45-117); BUN Blood Urea Nitrogen 6 mg/dL (7-18); Bicarbonate 28 mmol/L (21-32); Glucose Level 101 mg/dL (74-106); HDL Cholesterol 43 mg/dL (40-60); LDL Cholesterol, Calculated 100 (<130); Potassium 3.9 mmol/L (3.5-5.1); Sodium Level 142 mmol/L (136-145)
[2019-09-25 06:16] LABS: Protime INR 0.96
[2019-09-25 06:21] LABS: Bilirubin Total 0.3 mg/dL (0.2-1.0)
[2019-09-25] MEDS ORDERED: ASPIRIN EC 81 MG TAB PO SCH (09:00)
[2019-09-25] MEDS: CITALOPRAM 10 MG TABLET PO SCH (09:14)
[2019-09-25] MEDS: DOCOSAHEXANOIC AC/EPA 1000 MG PO SCH ×2 (09:14→21:53)
[2019-09-25] MEDS: METOPROLOL XL 25 MG TAB PO SCH (09:14)
[2019-09-25] MEDS: FOLIC ACID 1 MG TABLET PO SCH (09:15)
--- NOTE | 2019-09-25 11:38 | RAD REPORT ---
EXAM DESCRIPTION: MRI - MRA Head Wo Cont - 09/25/2019 11:13 am CLINICAL HISTORY: Intracranial lesion; possible subacute CVA CVA COMPARISON: Brain W/Wo Cont dated 09/25/2019 FINDINGS: 3D noncontrast [id number] MR angiography of the [place] was performed. No aneurysm, flow-limiting stenosis or vascular malformation is seen. Forward flow seen in codominant vertebral arteries. The visualized dural venous sinuses appear patent. IMPRESSION: No significant flow abnormality of the [place] is identified.
--- NOTE | 2019-09-25 11:38 | RAD REPORT ---
EXAM DESCRIPTION: MRI - Brain W/Wo Cont - 09/25/2019 11:14 am CLINICAL HISTORY: intracranial lesion; possible subacute Headache, drowsiness COMPARISON: Head angio dated 09/24/2019; MRA Neck W/Wo Cont dated 09/25/2019; MRA Head Wo Cont dated TECHNIQUE: Multi-sequence, multiplanar MR imaging of the brain was performed with contrast. FINDINGS: An intra-axial T1 hyperintense lesion is present in the left temporoparietal region measur ing 27 x 19 x 16 mm (AP x T x CC). Mild T2 and FLAIR hyperintensities is seen in the surrounding whit e matter tracts compatible with mild areas of edema. No midline shift is evident.. The lesion demonst rates significant T1 and T2 hyperintensity. Following contrast administration, the degree of T1 hyper intensity is mildly increased. There is also slight enhancement seen in the surrounding perilesional tissues and adjacent sulci. The lesion demonstrates areas susceptibility DWI/ADC imaging as well as i ncreased DWI signal. The midline structures are normally formed. Mastoid air cells and paranasal sinuses are clear. IMPRESSION: Intra-axial lesion in the left temporoparietal region demonstrates MR features most sugg estive of blood products/intracranial hematoma. The findings may be related to underlying vascular ma lformation or mass.
--- NOTE | 2019-09-25 11:41 | RAD REPORT ---
EXAM DESCRIPTION: MRI - MRA Neck W/Wo Cont - 09/25/2019 11:14 am CLINICAL HISTORY: intracranial lesion; possible subacute Headache, drowsiness COMPARISON: No comparisons FINDINGS: Contrast enhance 2D [id number] MR angiography of the neck vessels was performed. A left aortic arch is identified. Normal branching pattern of the great vessels seen. Both subclavian arteries and common carotid arteries are widely patent. No significant stenosis of th e internal carotid artery is is identified. Antegrade flow is seen in both vertebral arteries. IMPRESSION: No significant flow abnormality of the neck vessels is identified.
[2019-09-25 12:23] LABS: Rheumatoid Factor NEG (NEG)
[2019-09-25] MEDS ORDERED: HYDROCODONE/APAP 7.5/325 MG TAB PO PRN (14:42)
[2019-09-25] MEDS ORDERED: TRAMADOL HCL 50 MG TAB PO PRN (14:42)
--- NOTE | 2019-09-25 16:34 | P.PN ---
Subjective Date of Service: 09/25/19 Primary Care Provider: Dr. Douglas Chief Complaint: Altered mental status; subacute CVA Subjective: Improving Physical Examination - Vital Signs Temperature: 97 F Blood Pressure: 112/83 Pulse: 74 Respirations: 18 Pulse Ox (%): 99 - Physical Exam General: Alert, In no apparent distress, Oriented x3, Cooperative HEENT: Atraumatic Neck: Supple Respiratory: Clear to auscultation bilaterally, Normal air movement Cardiovascular: Normal pulses, Regular rate/rhythm Gastrointestinal: Normal bowel sounds, Soft and benign, Non-distended Integumentary: No erythema, No warmth, No cyanosis Neurological: Normal speech, Normal strength at 5/5 x4 extr, Normal tone, Normal affect - Studies Laboratory Data (last 24 hrs) 09/24/19 19:13: PT 10.9, INR 0.92 09/24/19 19:13: WBC 6.8, Hgb 14.2, Hct 42.2, Plt Count 358 09/24/19 19:13: Sodium 141, Potassium 4.0, BUN 7, Creatinine 0.66, Glucose 97, Magnesium 2.3, Total Bilirubin 0.2, AST 16, ALT 15, Alkaline Phosphatase 67 Medications List Reviewed: Yes Assessment & Plan Discharge Plan: Home Plan to discharge in: 24 Hours Physician Review Additional Text: Impression: Confusion secondary to intra-axial lesion in the left temporoparietal region suspicious for intracranial hematoma etiology unknown Hypertension Hyperlipidemia Plan: Confusion secondary to intra-axial lesion in the left temporoparietal region suspicious for intracranial hematoma etiology unknown: Case discussed at length with Neurology. Etiology of hematoma unknown. Doubt malformation as previous CT scan unremarkable. Patient will have coagulable workup. Will continue monitor closely. Neurology to further evaluate and obtain further lab. If improved over the next 24 hr will consider discharge. Hypertension: Continue medication Hyperlipidemia: Medication initiated Time Spent Managing Pts Care (In Minutes): 55
[2019-09-25] MEDS ORDERED: ENOXAPARIN 30 MG/0.3 ML SQ SCH (17:00)
--- NOTE | 2019-09-25 18:33 | EKG ---
Test Date: 2019-09-24 Test Time: 19:19:34 Stock Associate: TRINA MEASUREMENT RESULTS: Intervals: Rate: 68 PA: 108 QRSD: 88 QT: 376 QTc: 399 [place]: P: 45 PA: 108 QRS: 81 T: 23 INTERPRETIVE STATEMENTS: Sinus rhythm with short PA Otherwise normal ECG Compared to ECG 06/25/2001 23:16:00 Atrial premature complex(es) no longer present Electronically Signed On 09-25-19 18:31:19 CDT by Damián Posada
--- NOTE | 2019-09-25 20:30 | RAD REPORT ---
EXAM DESCRIPTION: CT - Abdomen Pelvis W/Wo Contrast - 09/25/2019 8:13 pm CLINICAL HISTORY: Abdominal pain COMPARISON: 2008 TECHNIQUE: Computed axial tomography of the abdomen and pelvis was obtained. Unenhanced and enhanced images were taken. 100 cc Isovue 300 was administered intravenously. Oral contrast was not requested which limits evaluation of bowel All CT scans are performed using dose optimization technique as appropriate and may include automated exposure control or mA/KV adjustment according to patient size. FINDINGS: The left lobe of liver is prominent. Cholecystectomy. Kidneys, spleen, pancreas and adrenals appear unremarkable. There is no evidence of diverticulitis. No adnexal mass. IMPRESSION: Hepatomegaly
--- NOTE | 2019-09-25 20:32 | RAD REPORT ---
EXAM DESCRIPTION: Stuart Reno (2 Views)09/25/2019 8:21 pm CLINICAL HISTORY: Chest pain COMPARISON: 2016 FINDINGS: The lungs appear clear of acute infiltrate. The heart is normal size IMPRESSION: No acute abnormalities displayed
[2019-09-25] MEDS: ATORVASTATIN 40 MG TAB PO SCH (21:53)
--- NOTE | 2019-09-25 23:03 | CON ---
Date of Consultation: 09/25/2019 Time: 1829. Reason: Stroke. History: A 34-year-old lady known to myself. We have seen her on and off over the last 8 to 10 year s. For about 2 years ago, she re-presented for some right hand problems and was found to have a low cervical high thoracic disk herniation, which was corrected surgically and the hand weakness resolved . She was lost to follow up. As part of that workup, she did have a brain MRI as well back in 2018 that was normal. There was no evidence of an underlying vascular malformation or any type of lesion. So, Monday last, around the or the , she developed severe headache, difficulty speaking an d comprehending, went to outside emergency department in [place] where she was found to have a urina ry tract infection. Drug screen was positive for THC, but no cocaine or methamphetamines. Unfortuna tely, she did not have a CT scan of the brain at that juncture, and she was discharged, told to rashard flores up with Neurology. So, she presented to my office last week with the aforementioned history. We f elt that a brain imaging was indicated and ordered outpatient brain MRI, which demonstrated hematoma in the left temporal lobe with differential of hematoma, AVM rupture, aneurysm rupture, and parenchym a tumor, etc. It was felt unwise to have the patient stay at home while we sorted through the proble m, so she was referred to the emergency department. CT scan demonstrated that the hematoma had at le ast stopped bleeding. She was able to have a CT angiogram, which did not demonstrate any evidence of aneurysm, dissection, or other eminently life-threatening difficulties. Certainly, no carotid disse ction has been able to be demonstrated on multiple imaging studies. She was admitted to the hospital given the potentially life-threatening nature of the problem, but she has done well and has really n o identifiable deficits likewise given the lack of deficit, and the fact that at this juncture, the h emorrhage is probably about 8 to 10 days old, transfer up to [place] seemed to be potentially excessi ve. She has had a hypercoagulable workup performed and those results are still pending. She has an EEG pending as well. Brain MRI demonstrates hematoma, left temporal lobe. Doppler is pending. Echo is pending. She is not on any type of anti-platelet agents and the DVT prophylaxis given the imagin g abnormality has been stopped. Of note, I have taken care of multiple family members of hers and he r sister/half-sister has extremely lax joints and has had a genetically confirmed diagnosis of Lynette -Danlos, although the current patient does not really have extremely lax joints. Consultation was re quested. Past Medical History: Migraines, prior cervical radiculopathy, hypertension. Routine Medications: Metoprolol, Celexa, and oral contraceptive. Family History: Lynette-Danlos. Social History: Former smoker. Drinks normally. Independent with activities of daily living. Allergies: SULFA, AZITHROMYCIN, AND LATEX. Review of Systems: General: General good health. Eyes: Negative. Ears, Nose, Throat: Negative. Cardiovascular: Hypertension. Pulmonary: Negative. GI: Negative. : Negative. Musculoskeletal: Negative. Neurologic: As noted. Psychiatric: Depression. Endocrine: Negative. Hematologic: Negative. Physical Examination: Vital Signs: 97, 74, 18, 112/83. General: Pleasant lady, sitting in bed, in no distress. Awake, alert, oriented. There is no joint laxity. There is no skin laxity on exam. There is no cigarette paper thinning of the surgical incis ion from the diskectomy. HEENT: Pupils are reactive. Ocular motion is full without nystagmus. Visual rodriguez are full to con frontation bilaterally. Facial strength and sensation are normal. Tongue protrudes evenly. Soft pa late elevates symmetrically bilaterally. Neurologic: Extremity strength is full. Sensation intact. No cortical extinction. Reflexes are 1/ 4. Toes are downgoing. Cerebellar exam demonstrates no ataxia. Gait is normal. Pertinent Laboratories: MRI as noted. Approximate 3 cm posterior left temporal lobe hematoma with h emosiderin ring consistent with a late subacute hematoma. MRA is unremarkable. CTA is unremarkable. It may be that the patient had a spontaneous cerebral hemorrhage or there may be an underlying lesi on there in the temporal lobe. Plan: We will check an EEG given the location and clinical history. Speech therapy evaluation. She will need repeat imaging. Discontinue the oral contraceptives. Speech therapy evaluation for cogni tion. Check RPR given the questionable underlying lesion in the temporal lobe. Check a chest x-ray and a CT of the abdomen. Thank you for the consult. We will continue to follow with you. GADIEL/MODL Voice ID: [id number] Report ID: [id number]
[2019-09-26] MEDS: METOPROLOL XL 25 MG TAB PO SCH (07:27)
[2019-09-26] MEDS: FOLIC ACID 1 MG TABLET PO SCH (07:27)
[2019-09-26] MEDS: DOCOSAHEXANOIC AC/EPA 1000 MG PO SCH ×2 (07:27→20:45)
[2019-09-26] MEDS: CITALOPRAM 10 MG TABLET PO SCH (07:28)
--- NOTE | 2019-09-26 08:10 | ECHO ---
HEIGHT: 5 ft 5 in WEIGHT: 136 lb 0 oz DATE OF STUDY: 09/25/[address]: Kaushal Padgett MD 2-DIMENSIONAL: YES M.MODE: YES DOPPLER: YES COLOR FLOW: YES TDS: NO PORTABLE: NO DEFINITY: NO BUBBLE STUDY: NO DIAGNOSIS: ACUTE CEREBRAL VASCULAR ACCIDENT CARDIAC HISTORY: CATHERIZATION: NO SURGERY: NO PROSTHETIC VALVE: NO PACEMAKER: NO MEASUREMENTS (cm) DIASTOLIC (NORMALS) SYSTOLIC (NORMALS) IVSd 1.1 (0.6-1.2) LA Diam 2.1 (1.9-4.0) LVEF 56% LVIDd 3.7 (3.5-5.7) LVIDs 2.7 (2.0-3.5) %FS 29% LVPWd 1.1 (0.6-1.2) Ao Diam 3.0 (2.0-3.7) 2 DIMENSIONAL ASSESSMENT: RIGHT ATRIUM: NORMAL LEFT ATRIUM: NORMAL RIGHT VENTRICLE: NORMAL LEFT VENTRICLE: NORMAL TRICUSPID VALVE: NORMAL MITRAL VALVE: NORMAL PULMONIC VALVE: NORMAL AORTIC VALVE: NORMAL PERICARDIAL EFFUSION: NONE AORTIC ROOT: NORMAL LEFT VENTRICULAR WALL MOTION: NORMAL DOPPLER/COLOR FLOW: NORMAL COMMENTS: NORMAL 2D ECHOCARDIOGRAM WITH DOPPLER. NO THROMBUS. NO CLEAR EVIDENCE OF ATRIAL SEPTAL DEFECT, SUGGEST BUBBLE STUDY IF CLINICALLY INDICATED. NO EFFUSION. TECHNOLOGIST: Liss SERNA
--- NOTE | 2019-09-26 10:51 | RAD REPORT ---
EXAM DESCRIPTION: US - CP - 09/25/2019 9:31 pm CLINICAL HISTORY: Acute CVA Headache, drowsiness, CVA symptomology COMPARISON: MRA Neck W/Wo Cont dated 09/25/2019 TECHNIQUE: Real-time sonographic evaluation of both carotid systems was performed. Doppler interroga tion was performed with waveform tracing bilaterally. FINDINGS: Normal high resistance waveforms are noted in both external carotid arteries. The common c arotid arteries and internal carotid arteries show normal low resistance waveforms. No significant plaque formation is seen. Peak systolic and end diastolic velocity values and the ICA/ CCA ratios are in the non-hemodynamically significant range. Antegrade flow seen in both vertebral arteries. IMPRESSION: No significant atherosclerotic changes noted. No evidence of a hemodynamically significant stenosis.
--- NOTE | 2019-09-26 13:26 | P.PN ---
Subjective Date of Service: 09/26/19 Primary Care Provider: Dr. Douglas Chief Complaint: Altered mental status; subacute CVA Subjective: Improving, Doing well Physical Examination - Vital Signs Temperature: 97 F Blood Pressure: 102/64 Pulse: 69 Respirations: 16 Pulse Ox (%): 98 - Physical Exam General: Alert, In no apparent distress, Oriented x3, Cooperative HEENT: Atraumatic Neck: Supple Respiratory: Clear to auscultation bilaterally, Normal air movement Cardiovascular: Normal pulses, Regular rate/rhythm Gastrointestinal: Normal bowel sounds, Soft and benign, Non-distended Integumentary: No erythema, No warmth, No cyanosis Neurological: Normal speech, Normal strength at 5/5 x4 extr, Normal tone, Normal affect - Studies Medications List Reviewed: Yes Assessment & Plan Discharge Plan: Home Plan to discharge in: 24 Hours Physician Review Additional Text: Impression: Confusion secondary to 27 x 19 x 15 mm intra-axial lesion in the left temporoparietal region suspicious for intracranial hematoma etiology unknown Hypertension Hyperlipidemia Hepatomegaly Plan: Confusion secondary to 27 x 19 x 15 mm intra-axial lesion in the left temporoparietal region suspicious for intracranial hematoma etiology unknown: Case discussed at length with Neurology yesterday. Etiology at hematoma still on known. Patient will have hyper coagulable and autoimmune workup workup. Other lab includes hepatitis panel, RPR, and HIV. Neurology desires to have EEG to rule out seizure activity. Patient has done well with physical therapy and speech therapy. Will discuss further with Neurology on plan of care and on when to discharge patient. This lesion will need to be monitored closely. No furth er bleeding noted at this time. Hypertension: Continue medication Hyperlipidemia: Medication has been started. Hepatomegaly: Etiology unknown. Will send for hepatitis panel and HIV. Autoimmune and hypercoagulable workup in process. Time Spent Managing Pts Care (In Minutes): 55
[2019-09-26 20:33] VITALS: BP 109/72; TEMP 97.6
[2019-09-26] MEDS: ATORVASTATIN 40 MG TAB PO SCH (20:45)
--- NOTE | 2019-09-27 00:19 | PN ---
Date of Progress Note: 09/26/2019 Time: 1840. Reason: Cerebral hemorrhage. Interval History: Patient is stable. Carotid Doppler, no stenosis. Echocardiogram, no thrombus, no valvular abnormality, no enlarged aortic root. EEG demonstrated left focal slowing. Chest x-ray wa s normal. CT of the abdomen and pelvis demonstrated hepatomegaly. Had some additional labs ordered as well. I think patient is stable to be discharged. Multiple additional sent out labs are all pend ing. Sedimentation rate was only 5. Physical Examination: General: She is awake, alert, oriented. Neurologic: Pupils reactive. Ocular motion full. Visual rodriguez full. Face symmetric. Tongue midl ine. Soft palate elevates bilaterally. Extremity strength full. Sensation intact. Reflexes symmet jose l. Cerebellar exam demonstrates no ataxia. Impression: Cerebral hemorrhage. Plan: Stable to be discharged. Follow up in the office as scheduled. Speech Therapy did not find a ny problems. PT did not recommend any additional intervention. She should discontinue the oral cont raceptive. GADIEL/SALONI Voice ID: [id number] Report ID: [id number]
[2019-09-27 03:39] LABS: RPR (Rapid Plasma Reagin) NON-REACT (NON-REACT)
--- NOTE | 2019-09-27 05:13 | P.DS ---
Discharge Date: 09/26/19 Primary Care Provider: Dr. Douglas Disposition: ROUTINE DISCHARGE Discharge Condition: GOOD Reason for Admission: Altered mental status; subacute CVA Consultations: Neurology - Problems (1) Acute CVA (cerebrovascular accident) Status: Acute Brief History of Present Illness: Patient is a 34-year-old female who has been having some confusion for the last week. She has gone to see a neurologist and had outpatient studies performed. According to the patient her MRI revealed that she had a stroke. She was sent to the ER by her neurologist to be further evaluated. In the emergency room a CT scan did reveal that patient had a questionable subacute infarct. According to radiology report, the CT scan revealed "moderate hypodensity in the subcortical white matter of the left temporoparietal region with possible adjacent cortical thickening." Patient's differential diagnosis includes subacute CVA, cerebritis and neoplasm. Patient will be admitted to the hospital for MRI stroke protocol. Pending MRI findings patient will get echo and carotid Doppler. We will get a lipid profile as well. Patient will be admitted for further workup of the abnormal and worrisome CT scan findings. Hospital Course: Patient's workup revealed a subacute infarct. patient will need close outpatient monitoring. PCP has been stop. Patient will need continued follow- up for hypercoagulable workup and will need genetic testing for possible Lynette- Danlos. Patient is to return to the ER if symptoms worsen. At this time, patient is stable for discharge home with outpatient follow-up. Vital Signs/Physical Exam: Temp Pulse Resp BP Pulse Ox 97.6 F 68 16 109/72 96 09/26/19 20:00 09/26/19 20:00 09/26/19 20:00 09/26/19 20:00 09/26/19 20:00 General: Alert, In no apparent distress, Oriented x3 Laboratory Data at Discharge: WBC 7.4 K/uL (4.3-10.9) 09/25/19 05:07 Hgb 13.9 g/dL (12.0-15.0) 09/25/19 05:07 Hct 41.2 % (36.0-45.0) 09/25/19 05:07 Plt Count 316 K/uL (152-406) 09/25/19 05:07 PT 11.3 SECONDS (9.5-12.5) 09/25/19 05:07 INR 0.96 09/25/19 05:07 APTT 26.7 SECONDS (24.3-36.9) 09/25/19 05:07 Sodium 142 mmol/L (136-145) 09/25/19 05:07 Potassium 3.9 mmol/L (3.5-5.1) 09/25/19 05:07 BUN 6 mg/dL (7-18) L 09/25/19 05:07 Creatinine 0.67 mg/dL (0.55-1.3) 09/25/19 05:07 Glucose 101 mg/dL (74-106) 09/25/19 05:07 Magnesium 2.3 mg/dL (1.8-2.4) 09/24/19 19:13 Total Bilirubin 0.3 mg/dL (0.2-1.0) 09/25/19 05:07 AST 12 U/L (15-37) L 09/25/19 05:07 ALT 14 U/L (12-78) 09/25/19 05:07 Alkaline Phosphatase 58 U/L (45-117) 09/25/19 05:07 Triglycerides Cancelled 09/25/19 06:00 Cholesterol Cancelled 09/25/19 06:00 HDL Cholesterol Cancelled 09/25/19 06:00 Cholesterol/HDL Ratio Cancelled 09/25/19 06:00 Home Medications: Citalopram Hydrobromide [Citalopram HBr] 40 mg PO DAILY 09/25/19 Metoprolol Succinate [Toprol Xl*] 25 mg PO DAILY 09/25/19 Atorvastatin Calcium [Lipitor] 40 mg PO BEDTIME #30 tab 09/26/19 Docosahexanoic AC/Epa [Fish Oil 1,000 MG*] 1,000 mg PO BID #60 cap 09/26/19 Hydrocodone 7.5/APAP 325 [[place] 7.5/325 mg*] 1 tab PO Q6H PRN #20 tab 09/26/19 New Medications: Docosahexanoic AC/Epa [Fish Oil 1,000 MG*] 1,000 mg PO BID #60 cap Atorvastatin Calcium [Lipitor] 40 mg PO BEDTIME #30 tab Hydrocodone 7.5/APAP 325 [[place] 7.5/325 mg*] 1 tab PO Q6H PRN #20 tab PRN Reason: Pain Scale 5-7 (Moderate) Patient Discharge Instructions: OK TO DC IV AND DC HOME. FOLLOW-UP WITH PRIMARY CARE PROVIDER IN 1-2 WEEKS. FOLLOW-UP WITH NEUROLOGY IN 1-2 WEEKS. RETURN TO THE ER IF symptoms worsen. CALL or TEXT DR. HANNA AT [phone] IF ANY QUESTIONS REGARDING HOSPITAL STAY. PLEASE CALL THE FLOOR AT [phone] IF ANY MEDICATION OR NURSING QUESTIONS. Diet: AHA Activity: Fall precautions Followup: Jeffry Douglas MD [Primary Care Provider] - (Follow up at scheduled appointment) Time spent managing pt's care (in minutes): 40
--- NOTE | 2019-09-27 11:44 | EEG ---
CHART: [id number] TEST ID#: [id number] DATE OF STUDY: 09/26/2019 THE EEG WAS RECORDED PORTABLE IN THE PATIENT'S ROOM ON A 17 CHANNEL MACHINE. ELECTRODES WERE APPLIED IN THE USUAL MANNER USING THE INTERNATIONAL 10-20 SYSTEM. THE WAKING BACKGROUND RHYTHM IN THIS RECORD CONSISTS OF VERY WELL DEVELOPED AND WELL ORGANIZED WAVES OF 10 HZ., MAXIMAL IN THE POSTERIOR HEAD REGIONS WHICH ATTENUATE NORMALLY WITH EYE OPENING. IN DROWSINESS THE BACKGROUND DROPS TO 9 HZ. RARE MODERATE AMPLITUDE SLOW WAVES OF 4-8 HZ ARE NOTED OVER THE LEFT TEMPORAL REGION. NO EPILEPTIFORM ACTIVITY APPEARS. SLEEP DID NOT OCCUR. HYPERVENTILATION WAS NOT PERFORMED. PHOTIC STIMULATION PRODUCED GOOD DRIVING BILATERALLY. IMPRESSION: ABNORMAL EEG BECAUSE OF RARE LEFT FOCAL SLOWING. THE ABOVE SUGGESTS FOCAL PATHOLOGY/ DYSFUNCTION ON THE LEFT.
[2019-09-27 17:49] LABS: Albumin, (SPE) 3.6 g/dL (3.8-4.8); Alpha-1-Globulins 0.3 g/dL (0.2-0.3); Alpha-2-Globulins 0.6 g/dL (0.5-0.9); Gamma Globulins 0.8 g/dL (0.8-1.7); INTERPRETATION REPORT
== END 2019-09-26 20:40 | disposition home or self-care (01) | DRG 66 ==
LOC: ER 18:34 → ERHOLD 23:07 → 2ND 09-25 00:01
PROVIDERS: ADMIT Hospitalist; ATTEND Family Medicine
DX: I63.9 Cerebral infarction, unspecified (principal); E78.5 Hyperlipidemia, unspecified; I10 Essential (primary) hypertension; R29.702 NIHSS score 2; R41.3 Other amnesia; R41.82 Altered mental status, unspecified; R16.0 Hepatomegaly, not elsewhere classified; Z91.040 Latex allergy status; Z79.899 Other long term (current) drug therapy; Z87.891 Personal history of nicotine dependence; Z88.1 Allergy status to other antibiotic agents; Z79.891 Long term (current) use of opiate analgesic; Z90.49 Acquired absence of other specified parts of digestive tract
CPT/HCPCS: 36415; 70450; 70496; 70544; 70549; 70553; 71046; 74178; 80048; 80053; 80061; 80074; 80076; 80307; 81003; 81025; 81241; 83735; 83880; 84165; 84443; 84484; 85025; 85300; 85301; 85302; 85305; 85306; 85610; 85652; 85730; 86021; 86038; 86225; 86430; 86592; 87389; 92523; 93005; 93306; 93880; 95816; 96365; 96366; 97112; 97116; 97161; 99285; A9577; J7030; Q9967

== ENCOUNTER 2021-01-16 00:06 | Emergency (ER) | payer OTHER ==
--- OUTSIDE RECORDS SUMMARY | 2021-01-16 00:24 | XMS REPORT | Continuity of Care Document ---
:[address] [facility] t Address [address] [place] [address] Care Team Providers Name Role Phone Kwasi Holbrook MD Primary Care Physician Alexia Elias Attending Clinician Unavailable Tadeo Douglas Attending Clinician Constantine Elias Attending Clinician [phone] Jordan Diallo DO Attending Clinician Faculty, [facility] Attending Clinician Unavailable Provider, Temp Attending Clinician Unavailable Doctor Unassigned, Name Attending Clinician Unavailable Estephania Gama Attending Clinician Alexia Elias Admitting Clinician Unavailable Payers Payer Name Policy Type Policy Number Effective Date Expiration Date S ource Problems Condition Condition Condition Status Onset Resolution Last Treating Co mments Source Name Details Category Date Date Treatment Clinician Date Cervical Cervical Disease Active 2018-0 Metho di radiculopa radiculopa 9-24 st thy due to thy due to 00:00: Ho spita interverte interverte 00 l bral disc bral disc disorder disorder Displaceme Problem Resolve 2020-10-25 Memoria nt of d 21:24:17 l thoracic Alejandro interverte Displaceme bral disc nt of without thoracic myelopathy interverte (disorder) bral disc without myelopathy (disorder) Resolved Problem 10/25/2020 [facility] Headache Problem Active 2020-10-25 Mem oria (finding) 21:24:17 l Headache Frederick n (finding) Active Problem 10/25/2020 [facility] Hypertensi Problem Active 2020-10-25 M emoria ve 21:24:17 l disorder, [place] systemic Hypertensi arterial ve (disorder) disorder, systemic arterial (disorder) Active Problem 10/25/2020 [facility] Paresthesi Problem Active 2020-10-25 M emoria a 21:24:17 l (finding) Alejandro Paresthesi a (finding) Active Problem 10/25/2020 [facility] Cerebral Problem Active 2020-10-25 Mem oria hemorrhage 21:24:17 l (disorder) Cerebral He rmann hemorrhage (disorder) Active Problem 10/25/2020 [facility] Dyscalculi Problem Active 2020-10-25 M emoria a 21:24:17 l (finding) Alejandro Dyscalculi a (finding) Active Problem 10/25/2020 [facility] Pain in Problem Active 2020-10-25 Brent keenan elbow 21:24:17 l (finding) Pain in Herm rosina elbow (finding) Active Problem 10/25/2020 [facility] Allergies, Adverse Reactions, Alerts Allergy Allergy Status Severity Reaction(s) Onset Inactive Treating Comm ents Source Name Type Date Date Clinician Sulfa DA Active [facility] ([facility]ona [facility] Antibiot 00 l of [place] azithrom DA Active [facility] ycin [facility]-23 [facility] [place] latex DA Active [facility] [place] Azithrom Propensi Active Hives Method i ycin ty to 9-20 st adverse 00:00: Hospita reaction 00 l s to drug Latex Propensi Active Rash mouthsore Metho di ty to 9-[address] adverse 00:00: Hospita reaction 00 l s to drug Sulfa Propensi Active In Methodi (Sulfona ty to 9-[address] mide adverse 00:00: Hospita Antibiot reaction 00 l ics) s to drug HYDROCOD DA Active U 2005- [facility] ONE - [facility] 00[facility] [place] No Known DA Active U 2005-0 [facility] Contrast -16 [facility] Allergie 00:[facility]: [facility]osp[facility] s [facility] [place] No Known DA Active U 2005-0 [facility] Food - [facility] All[facility] 00:00: [facility] s [facility] [place] No Known DA Active U 2005-0 [facility] Other - [facility]: [facility] [place] SULFA DA Active U 2005-0 [facility] DRUGS 16 [facility] 00:[facility]: [facility] [place] sulfa sulfa Active Memoria drugs drugs l [place] Latex Latex Active Memoria l [place] Family History Family Member Diagnosis Comments Start Date Stop Date Source Natural father Hypertension [facility] Natural mother Hypertension [facility] Natural sister Hypertension [facility] Social History Social Habit Start Date Stop Date Quantity Comments Source History of Sm[facility] Tobacco use and 2018-03-02 2018-03-02 Never used [facility] exposure 00:[facility] 00[facility]00:00 Hospital Alcohol intake 2018-03-02 2018-03-02 Current drinker [facility] dist 00:00:00 00:00:00 of alcohol Hospital (finding) Alcohol Comment 2018-02-22 2018-02-22 rarely [facility] 00:[facility]00 [facility] Social History 2017-11-08 2017-11-08 [facility] tank 20:22:21 20:22:21 Sex Ass[birth year] At [birth year] [facility] 00[facility] Smoking Status Start Date Stop Date Source Former smoker 2018-03-02 00:00:00 2018-03-02 00:00:00 [facility] Medications Ordered Filled Start Stop Current Ordering Indication Dosage Frequency Signature Comments Components Source Medication Medication Date Date Medication? Clinician (SIG) Name Name citalopram Yes 20 mg = 1 Me moria 20 mg oral 9-04 tab, PO, l tablet 20:32: Daily, # Alejandro 00 30 tab, 3 Refill(s), Pharmacy: [place] [address], 160.02, cm, 02/07/20 14:35:00 CDT, Height, 60.909, kg, 02/07/20 14:35:00 CDT, Weight citalopram Yes 20 mg = 1 Me moria 20 mg oral 9-04 tab, PO, l tablet 20:32: Daily, # [place] 00 30 tab, 3 Refill(s), Pharmacy: [place] [address], 160.02, cm, 02/07/20 14:35:00 CDT, Height, 60.909, kg, 02/07/20 14:35:00 CDT, Weight atorvastati Yes 20 mg = 1 M emoria n 20 MG 4-28 tab, PO, l Oral Tablet 20:23: Daily, # Johnathan rmann [Lipitor] 00 30 tab, 2 Refill(s), Pharmacy: [place] [address] atorvastati Yes 20 mg = 1 M emoria n 20 MG 4-28 tab, PO, l Oral Tablet 20:23: Daily, # Johnathan rmann [Lipitor] 00 30 tab, 2 Refill(s), Pharmacy: [place] [address] UNABLE TO Yes lolo Methodi FIND 02-[address] 22:05: tablet Hospita 12 daily l ( control pill) desvenlafax Yes 100mg QD Take 100 M ethodi ine 9-[address] (PRISTIQ) 22:05: mouth [facility]ospita 100 MG 24 12 daily. l hr tablet citalopram Yes 40mg QD Take 40 mg M ethodi (CeleXA) 40 9-[address] MG tablet 22:05: daily. Hospit a 12 l metoprolol Yes 25mg QD Take 25 mg M ethodi succinate [address] XL 22:05: daily. Hospita (TOPROL-XL) 12 l 25 mg 24 hr tablet Vital Signs Vital Name Observation Time Observation Value Comments Source Systolic (mm Hg) 2020-02-07 19:35:00 Brent rial Alejandro Diastolic (mm Hg) 2020-02-07 19:35:00 Mem orial [place] Heart Rate 2020-02-07 19:35:00 [facility] [place] Respitory Rate 2020-02-07 19:35:00 Memori al Alejandro Height 2020-02-07 19:35:00 160.02 cm [facility] [place] Weight 2020-02-07 19:35:00 [facility] [place] BMI Calculated 2020-02-07 19:35:00 Memori al [place]jandro Systolic (mm Hg) 2019-11-08 19:36:00 Brent rial Alejandro Diastolic (mm Hg) 2019-11-08 19:36:00 Mem orial [place] Heart Rate 2019-11-08 19:36:00 [facility] [place] Respitory Rate 2019-11-08 19:36:00 Memori al [place] Height 2019-11-08 19:36:00 165.1 cm [facility] [place] Weight 2019-11-08 19:36:00 [facility] [place] BMI Calculated 2019-11-08 19:36:00 Memori al [place] Systolic (mm Hg) 2019-10-01 19:39:00 Brent rial Alejandro Diastolic (mm Hg) 2019-10-01 19:39:00 Mem orial [place] Heart Rate 2019-10-01 19:39:00 [facility] [place] Respitory Rate 2019-10-01 19:39:00 Memori al [place] Height 2019-10-01 19:39:00 162.56 cm [facility] [place] Weight 2019-10-01 19:39:00 [facility] [place] BMI Calculated 2019-10-01 19:39:00 Memori al [place] Systolic (mm Hg) 2019-09-17 19:47:00 Brent rial Alejandro Diastolic (mm Hg) 2019-09-17 19:47:00 Mem orial [place] Heart Rate 2019-09-17 19:47:00 [facility] [place] Respitory Rate 2019-09-17 19:47:00 Memori al [place] Height 2019-09-17 19:47:00 165.1 cm [facility] [place] Weight 2019-09-17 19:47:00 [facility] [place] BMI Calculated 2019-09-17 19:47:00 Memori al Alejandro Procedures This patient has no known procedures. Plan of Care Planned Activity Planned Date Details Comments Source Future Scheduled Test COVID-19 VACCINE (1) [facility] [code = COVID-19 VACCINE (1)] Future Scheduled Test Hepatitis C screening [facility] (procedure) [code = 610199153] Future Scheduled Test Screening for [facility] malignant neoplasm of cervix (procedure) [code = 259982076] Future Scheduled Test INFLUENZA VACCINE [facility] [code = INFLUENZA VACCINE] Encounters Start End Encounter Admission Attending Care Care Encounter Source Date/Time Date/Time Type Type Clinicians Facility Department ID 2020-11-22 Inpatient EDWARD Elias [facility] [id number] [facility] 12:18:00 [facility] [id number] [facility] 2020-11-23 2020-11-28 Inpatient EDWARD Elias [facility] [id number] [facility] 17:02:00 18:32:00 John [id number] [facility] 2020-10-23 2020-10-23 Ambulatory nullFlavo MNA [id number] Memoria 14:45:00 14:45:00 Pre-Reg r Neurology 16 l Yas Allen 2020-10-23 2020-10-23 Ambulatory nullFlavo MNA [id number] Memoria 14:45:00 14:45:00 Pre-Reg r Neurology 16 l Yas Allen 2020-10-23 2020-10-23 Outpatient MHIE KALEY [id number] Memoria 09:45:00 09:45:00 16 l [place] 2020-10-23 2020-10-23 Outpatient KALEY ROCHE [id number] Memoria 09:45:00 09:45:00 16 aniyah Allen 2020-10-23 2020-10-23 Outpatient MASSIEL DouglasSCHDAE [id number] 09:45:00 09:45:00 Jeffry Brett Tadeo 2020-10-23 2020-10-23 Outpatient MASSIEL DouglasSCHDAE [id number] 09:45:00 09:45:00 Jeffry Brett Tadeo 2020-10-08 2020-10-08 Outpatient Curt [facility] [id number] 00:00:00 00:00:00 John [id number] Constantine [id number] 2020-09-25 2020-09-25 Outpatient Curt [facility] [id number] 00:00:00 00:00:00 John [id number] Constantine [id number] 2020-08-24 2020-08-24 Patient Yoel [facility] [id number] 00:00:00 00:00:00 Outreach [facility] [id number] [facility] [id number] MALOU [id number] 2020-08-11 2020-08-13 Outside nullFlavo MNA [id number] Memoria 21:44:55 05:59:59 Medical r Neurology 03 l Records Yas Allen 2020-08-11 2020-08-13 Outside nullFlavo MNA [id number] Memoria 21:44:55 05:59:59 Medical r Neurology 03 l Records Yas Hagerann 2020-08-11 2020-08-12 Outpatient MHMISCHER MHMISCHER [id number] 15:44:55 23:59:59 03 2020-08-11 2020-08-12 Outpatient MHMISCHER MHMISCHER [id number] 15:44:55 23:59:59 03 2020-04-27 2020-04-27 Routine Faculty, [facility] [id number] 08:37:26 09:07:26 Ang Rmchp DIRECTIONAL DRILLER 350.1.13.10 Visit [facility] [id number] MATERNAL [id number] & CHILD 107 [facility] 2020-04-20 2020-04-20 Initial Provider, [facility] [id number] 09:19:10 11:17:02 Júnior-Rmchp DIRECTIONAL DRILLER 350.1.13.10 Visit [facility] 4.2.7.2.686 MATERNAL [id number] & CHILD 130 [facility] 2020-04-20 2020-04-20 Orders Doctor PÉREZ [id number] 00:00:00 00:00:00 Only Unassigned, RERE 350.1.13.10 [facility] 4.2.7.2.686 [id number] 2020-04-08 2020-04-08 Ambulatory nullFlavo MNA [id number] Memoria 19:00:00 19:00:00 Pre-Reg r Neurology 15 l Yas Hagerann 2020-04-08 2020-04-08 Ambulatory nullFlavo MNA [id number] Memoria 19:00:00 19:00:00 Pre-Reg r Neurology 15 l [place] 2020-04-08 2020-04-08 Outpatient MHIE MHIE [id number] Memoria 13:00:00 13:00:00 15 l [place] 2020-04-08 2020-04-08 Outpatient MHIE MHIE [id number] Memoria 13:00:00 13:00:00 15 l Alejandro 2020-04-08 2020-04-08 Outpatient BLESSING DouglasSCHER MHMISCHER [id number] 13:00:00 13:00:00 Jeffry 15 Tadeo 2020-04-08 2020-04-08 Outpatient DIANELYS DouglasMISCHER MHMISCHER [id number] 13:00:00 13:00:00 Jeffry 15 Tadeo 2020-03-24 2020-03-24 Ambulatory nullFlavo MNA [id number] Memoria 15:00:00 15:00:00 Pre-Reg r Neurology 13 l [place] Alejandro 2020-03-24 2020-03-24 Ambulatory nullFlavo MNA [id number] Memoria 15:00:00 15:00:00 Pre-Reg r Neurology 13 l [place] Alejandro 2020-03-24 2020-03-24 Outpatient MHIE MHIE [id number] Memoria 10:00:00 10:00:00 13 l Alejandro 2020-03-24 2020-03-24 Outpatient MHIE MHIE [id number] Memoria 10:00:00 10:00:00 13 l [place] 2020-03-24 2020-03-24 Outpatient BLESSING DouglasSCHER MHMISCHER [id number] 10:00:00 10:00:00 Jeffry 13 Tadeo 2020-03-24 2020-03-24 Outpatient BLESSING DouglasSCHER MHMISCHER [id number] 10:00:00 10:00:00 Jeffry 13 Tadeo 2020-03-16 2020-03-16 Office Akinsipe, [facility] [id number] 09:11:42 10:07:12 Visit Marika Best DIRECTIONAL DRILLER 350.1.13.10 [facility] 4.2.7.2.686 MATERNAL [id number] & CHILD 107 [facility] 2020-02-14 2020-02-14 Outpatient MHIE MHIE [id number] Memoria 13:00:00 13:00:00 14 l [place] 2020-02-14 2020-02-14 Outpatient MHIE MHIE [id number] Memoria 13:00:00 13:00:00 14 l [place] 2020-02-12 2020-02-12 Ambulatory nullFlavo MNA [id number] Memoria 20:30:00 20:30:00 Pre-Reg r Neurology 10 l [place] 2020-02-12 2020-02-12 Ambulatory nullFlavo MNA [id number] Memoria 20:30:00 20:30:00 Pre-Reg r Neurology 11 l [place] 2020-02-12 2020-02-12 Ambulatory nullFlavo MNA [id number] Memoria 20:30:00 20:30:00 Pre-Reg r Neurology 10 l [place] 2020-02-12 2020-02-12 Ambulatory nullFlavo MNA [id number] Memoria 20:30:00 20:30:00 Pre-Reg r Neurology 11 l [place] 2020-02-12 2020-02-12 Outpatient MHIE MHIE [id number] Memoria 15:30:00 15:30:00 11 l [place] 2020-02-12 2020-02-12 Outpatient MHIE MHIE [id number] Memoria 15:30:00 15:30:00 10 l [place] 2020-02-12 2020-02-12 Outpatient MHIE MHIE [id number] Memoria 15:30:00 15:30:00 11 l Alejandro 2020-02-12 2020-02-12 Outpatient MHIE MHIE [id number] Memoria 15:30:00 15:30:00 10 l [place] 2020-02-12 2020-02-12 Outpatient MASSIEL Douglas MISCHER [id number] 15:30:00 15:30:00 Jeffry 10 T[place] 2020-02-12 2020-02-12 Outpatient Stella, MHMISCHER MHMISCHER [id number] 15:30:00 15:30:00 Jeffry 11 [facility] 2020-02-12 2020-02-12 Outpatient Stella, MHMISCHER MHMISCHER [id number] 15:30:00 15:30:00 Jeffry 10 [facility] 2020-02-12 2020-02-12 Outpatient Stella, MHMISCHER MHMISCHER [id number] 15:30:00 15:30:00 Jeffry 11 [facility] 2020-02-07 2020-02-08 Outpatient nullFlavo MNA [id number] Memoria 19:45:00 04:59:59 r Neurology 12 l [place] 2020-02-07 2020-02-08 Outpatient nullFlavo MNA [id number] Memoria 19:45:00 04:59:59 r Neurology 12 l [place] 2020-02-07 2020-02-07 Outpatient Stella, MISCHER MHMISCHER [id number] 14:45:00 23:59:59 Jeffry 12 Tadeo 2020-02-07 2020-02-07 Outpatient Stella, MHMISCHER MHMISCHER [id number] 14:45:00 23:59:59 Jeffry 12 [facility] 2020-02-07 2020-02-07 Outpatient MHIE MHIE [id number] Memoria 14:45:00 14:45:00 12 [facility] 2020-02-07 2020-02-07 Outpatient MHIE MHIE [id number] Memoria 14:45:00 14:45:00 12 [facility] 2019-11-12 2019-11-12 Ambulatory nullFlavo MNA [id number] Memoria 16:00:00 16:00:00 Pre-Reg r Neurology 08 l [place] 2019-11-12 2019-11-12 Ambulatory nullFlavo MNA [id number] Memoria 16:00:00 16:00:00 Pre-Reg r Neurology 08 l [place] Alejandro 2019-11-12 2019-11-12 Outpatient MHIE MHIE [id number] Memoria 11:00:00 11:00:00 08 l [place] 2019-11-12 2019-11-12 Outpatient MHIE MHIE [id number] Memoria 11:00:00 11:00:00 08 aniyah Alejandro 2019-11-12 2019-11-12 Outpatient DIANELYS DouglasMISCHER MHMISCHER [id number] 11:00:00 11:00:00 Jeffry 08 Tade[place] 2019-11-12 2019-11-12 Outpatient DIANELYS DouglasMISCHER MHMISCHER [id number] 11:00:00 11:00:00 Jeffry 08 Tadeo 2019-11-08 2019-11-09 Outpatient nullFlavo MNA [id number] Memoria 19:45:00 04:59:59 r Neurology 09 l Yas [place] 2019-11-08 2019-11-09 Outpatient nullFlavo MNA [id number] Memoria 19:45:00 04:59:59 r Neurology 09 l Yas [place] 2019-11-08 2019-11-08 Outpatient DIANELYS DouglasMISCHER MHMISCHER [id number] 14:45:00 23:59:59 Jeffry 09 [facility] 2019-11-08 2019-11-08 Outpatient DIANELYS DouglasMISCHER MHMISCHER [id number] 14:45:00 23:59:59 Jeffry 09 [facility] 2019-11-08 2019-11-08 Outpatient MHIE MHIE [id number] Memoria 14:45:00 14:45:00 09 l [place] 2019-11-08 2019-11-08 Outpatient MHIE MHIE [id number] Memoria 14:45:00 14:45:00 09 l [place] 2019-10-01 2019-10-02 Outpatient nullFlavo MNA [id number] Memoria 19:45:00 04:59:59 r Neurology 07 l [place] 2019-10-01 2019-10-02 Outpatient nullFlavo MNA [id number] Memoria 19:45:00 04:59:59 r Neurology 07 l [place] 2019-10-01 2019-10-01 Outpatient BLESSING DouglasSCHER MHMISCHER [id number] 14:45:00 23:59:59 Jeffry 07 [facility] 2019-10-01 2019-10-01 Outpatient DIANELYS DouglasMISCHER MHMISCHER [id number] 14:45:00 23:59:59 Jeffry 07 [facility] 2019-10-01 2019-10-01 Outpatient MHIE MHIE [id number] Memoria 14:45:00 14:45:00 07 aniyah [place] 2019-10-01 2019-10-01 Outpatient MHIE MHIE [id number] Memoria 14:45:00 14:45:00 07 aniyah Alejandro 2019-09-17 2019-09-18 Outpatient nullFlavo MNA [id number] Memoria 19:45:00 04:59:59 r Neurology 06 l [place] 2019-09-17 2019-09-18 Outpatient nullFlavo MNA [id number] Memoria 19:45:00 04:59:59 r Neurology 06 l [place] 2019-09-17 2019-09-17 Outpatient DIANELYS DouglasMISCHER MHMISCHER [id number] 14:45:00 23:59:59 Jeffry Juanpablo Tadeo 2019-09-17 2019-09-17 Outpatient DIANELYS DouglasMISCHER MHMISCHER [id number] 14:45:00 23:59:59 Jeffry Juanpablo Tadeo 2019-09-17 2019-09-17 Outpatient MHIE MHIE [id number] Memoria 14:45:00 14:45:00 06 aniyah [place] 2019-09-17 2019-09-17 Outpatient MHIE MHIE [id number] Memoria 14:45:00 14:45:00 06 aniyah [place]jandro 2019-03-18 2019-03-20 Outside nullFlavo MNA [id number] Memoria 19:18:48 04:59:59 Medical r Neurology 02 l Records [place] Alejandro 2019-03-18 2019-03-20 Outside nullFlavo MNA [id number] Memoria 19:18:48 04:59:59 Medical r Neurology 02 l Records Yas Allen 2019-03-18 2019-03-19 Outpatient MHMISCHER MHMISCHER [id number] 14:18:48 23:59:59 02 2019-03-18 2019-03-19 Outpatient MHMISCHER MHMISCHER [id number] 14:18:48 23:59:59 02 2018-03-15 2018-03-17 Outside nullFlavo MNA [id number] Memoria 20:18:00 04:59:59 Medical r Neurology 01 l Records [place] Alejandro 2018-03-15 2018-03-17 Outside nullFlavo MNA [id number] Memoria 20:18:00 04:59:59 Medical r Neurology 01 l Eddy Sorenson Alejandro 2018-03-15 2018-03-16 Outpatient MHMISCHER MHMISCHER [id number] 15:18:00 23:59:59 2018-03-15 2018-03-16 Outpatient MHMISCHER MHMISCHER [id number] 15:18:00 23:59:59 2018-02-23 2018-02-23 Outpatient MHIE MHIE [id number] Memoria 09:15:00 09:15:00 04 aniyah Alejandro 2018-02-23 2018-02-23 Outpatient MHIE MHIE [id number] Memoria 09:15:00 09:15:00 04 aniyah Alejandro 2018-01-19 2018-01-19 Outpatient MHIE MHIE [id number] Memoria 11:00:00 11:00:00 05 aniyah Alejandro 2018-01-19 2018-01-19 Outpatient MHIE MHIE [id number] Memoria 11:00:00 11:00:00 05 aniyah Alejandro 2017-12-22 2017-12-22 Outpatient MHIE MHIE [id number] Memoria 08:45:00 08:45:00 03 aniyah Alejandro 2017-12-22 2017-12-22 Outpatient MHIE MHIE [id number] Memoria 08:45:00 08:45:00 03 aniyah Alejandro 2017-12-01 2017-12-01 Outpatient MHIE MHIE [id number] Memoria 13:30:00 13:30:00 02 aniyah Alejandro 2017-12-01 2017-12-01 Outpatient MHIE MHIE [id number] Memoria 13:30:00 13:30:00 01 aniyah Allen 2017-12-01 2017-12-01 Outpatient MHIE MHIE [id number] Memoria 13:30:00 13:30:00 02 aniyah Allen 2017-12-01 2017-12-01 Outpatient MHIE MHIE [id number] Memoria 13:30:00 13:30:00 01 aniyah Allen 2017-11-08 2017-11-08 Outpatient MHIE MHIE [id number] Memoria 15:00:00 15:00:00 00 aniyah Allen 2017-11-08 2017-11-08 [id number] Memoria 15:00:00 15:00:00 00 aniyah [place] Results Test Description Test Time Test Comments Results Result [facility] e Comments - DUP VEIN ROJELIO 2020-11-27 00:00:[facility] 1985 Sex: F Patient Name: ALAN SYLVESTER Unit No: [id number] EXAMS: CPT CODE: [id number] DUP VEIN ROJELIO [id number] PROCEDURE INFORMATION: Exam: US Duplex Lower Extremity Veins, Bilateral Exam date and time: 11/27/2020 3:17 PM Age: 35 years old Clinical indication: Swelling (edema) of limb; Lower extremity, bilateral; Additional info: Swelling on both ankle TECHNIQUE: Imaging protocol: Real-time duplex ultrasound of the extremities with 2-D garrett scale, color Doppler flow and spectral waveform analysis with image documentation. Complete exam focused on the bilateral lower extremity veins. COMPARISON: No relevant prior studies available. FINDINGS: Right deep veins: The common femoral, femoral, proximal profunda femoral and popliteal veins are patent without thrombus. Normal Doppler waveforms. Normal compressibility and/or augmentation response. Right superficial veins: Visualized superficial veins are unremarkable. Left deep veins: The common femoral, femoral, proximal profunda femoral and popliteal veins are patent without thrombus. Normal Doppler waveforms. Normal compressibility and/or augmentation response. Left superficial veins: Visualized superficial veins are unremarkable. Soft tissues: Nonspecific lymph nodes in the bilateral groin region. IMPRESSION: No evidence of deep vein thrombosis. at 1642 Reported and signed by: Tracy Lua MD CC: John Gomezologist: Zamzam Hutchinson RDMS, RVT Probe: Trnscrbd D/ (1642) GCD.CPS Orig Print D/T: S: 11/27/2020 (1642) [facility] NAME: ALAN SYLVESTER Radiology Department PHYS: John Pan MD [address] : 1985 AGE: 35 SEX: F [place] [address] LOC: F.2069 A PHONE #: [phone] EXAM DATE: 11/27/2020 STATUS: ADM IN FAX #: [phone] RAD NO: Page 1 Signed Report Patient Name: ALAN SYLVESTER Unit No: [id number] EXAMS: CPT CODE: [id number] DUP VEIN ROJELIO 52691 <Continued> [facility] NAME: MUSKOGEEALAN Radiology Department PHYS: John Pan MD [address] : 1985 AGE: 35 SEX: F [place] [address] LOC: F.0 A PHONE #: [phone] EXAM DATE: 11/27/2020 STATUS: ADM IN FAX #: [phone] RAD NO: Page 2 Signed Report HGB HCT 2020-11-26 07:49:00 Test Item Value Reference Range Interpretation Comme nts HEMOGLOBIN (test code = HGB) 9.5 g/dL 10.1-13.8 L Results verified by repeat analysis HEMATOCRIT (test code = HCT) 28.7 % 32.5-41.8 L Results verified by repeat analysis COVID 19 Asymptomatic IH [id number] 22:05:00 Test Item Value Reference Range Interpretation Comments COVID 19 NEGATIVE NEGATIVE This test has b een Asymptomatic IH AG authorize d only for the (test code = detection ofpro teins from COVNONPUIAG) SARS-CoV-2, not for any other viruses orpathogens. N egative results should be treated as presumptive andconfirmed wi th a molecular assay , if necessary for patientmanageme nt. Negative result s do not rule out COVID- 19 andshould not b e used as the sole basis for treatment orpat ient management deci sions, including infec tion controldecision s. Negative result s should be considered i n thecontext of a patient's recent exposure s, history and thepresence of clinical signs and symptoms consis tent withCOVID-19. T his test has not been FD A cleared or approved; th e test hasbeen authori courtney by FDA under an Emerge ncy Use Authorization(E UA) for use by sean perez certified under the CLIA thatmeet the re quirements to perform mode rate, high or waivedcomple xity tests. This vishnu t is authorized for use at thePoint of Car e (POC), i.e., in patien t care settingsoperati ng under a CLIA Certificat e of Waiver, Certifi jacky ofCompliance, o r Certificate of Accreditation. This test is only authori courtney for the duration of thedeclaration that circumstances e xist justifying theauthorizatio n of emergency use o f in vitro diagnostic test sfor detection and/o r diagnosis of CO VID-19 under Vxxiffn02 4(b)(1) of the Act, 21 U.S .C. 360bbb-3(b)(1), unless theauthorizatio n is terminated or r evoked sooner. AG HEPATITIS B [id number] 20:21:00 Test Item Value Reference Range Interpretation Comments AG HEPATITIS B SURFACE (test code NONREACTIVE NONREACTIVE = HBSAG) IS CONSENT FORM SIGNED FOR HIV TESTING? YAB HEPATITIS C [id number] 20:21:00 Test Item Value Reference Range Interpretation Comments AB HEPATITIS C (test code = NONREACTIVE NONREACTIVE HCVAB) SIGNAL TO CUTOFF (test code = 0.04 <0.80 N CUTOFF) IS CONSENT FORM SIGNED FOR HIV TESTING? YAB [id number] 20:21:00 Test Item Value Reference Range Interpretation Comments AB TREPONEMA (test code = TREPAB) NONREACTIVE NONREACTIVE IS CONSENT FORM SIGNED FOR HIV TESTING? YAB HIV 1 20:21:00 Test Item Value Reference Range Interpretation Comments AB HIV 1 2 (test NONREACTIVE NONREACTIVE Done by Alexia oconnor [employer] code = [id number]) 4th Gen HIV Ag/Ab Combo Screen IS CONSENT FORM SIGNED FOR HIV TESTING? YAG HEPATITIS B [id number] 19:47:00 Test Item Value Reference Range Interpretation Comments AG HEPATITIS B SURFACE (test code NONREACTIVE NONREACTIVE = HBSAG) IS CONSENT FORM SIGNED FOR HIV TESTING? YAB HEPATITIS C [id number] 19:47:00 Test Item Value Reference Range Interpretation Comments AB HEPATITIS C (test code = HCVAB) NONREACTIVE SIGNAL TO CUTOFF (test code = CUTOFF) <0.80 IS CONSENT FORM SIGNED FOR HIV TESTING? YAB [id number] 19:47:00 Test Item Value Reference Range Interpretation Comments AB TREPONEMA (test code = TREPAB) NONREACTIVE NONREACTIVE IS CONSENT FORM SIGNED FOR HIV TESTING? YAB HIV 1 19:47:00 Test Item Value Reference Range Interpretation Comments AB HIV 1 2 (test code = [id number]) NONREACTIVE IS CONSENT FORM SIGNED FOR HIV TESTING? YCBC W/AUTO [id number] 19:25:00 Test Item Value Reference Range Interpretation Comments WHITE BLOOD CELL (test code = WBC) 8.0 K/mm3 6.5-12.3 N RED BLOOD CELL (test code = RBC) 3.78 M/mm3 3.51-4.69 N HEMOGLOBIN (test code = HGB) 12.2 g/dL 10.1-13.8 N HEMATOCRIT (test code = HCT) 36.7 % 32.5-41.8 N MEAN CELL VOLUME (test code = MCV) 97.1 fL 84.6-96.6 H MEAN CELL HGB (test code = MCH) 32.3 pg 27.3-33.9 N MEAN CELL HGB CONCETRATION (test 33.2 gm/dL 32.0-34.2 N code = MCHC) RED CELL DISTRIBUTION WIDTH (test 13.2 % 12.2-16.3 N code = RDW) PLATELET COUNT (test code = PLT) 180 K/mm3 134-363 N MEAN PLATELET VOLUME (test code = 11.3 fL 9.2-12.7 N MPV) NEUTROPHIL % (test code = NT%) 66.5 % 57.9-77.3 N LYMPHOCYTE % (test code = LY%) 20.1 % 14.5-29.7 N MONOCYTE % (test code = MO%) 11.0 % 3.6-10.2 H EOSINOPHIL % (test code = EO%) 0.8 % 0.0-3.0 N BASOPHIL % (test code = BA%) 0.3 % 0.1-0.9 N NEUTROPHIL # (test code = NT#) 5.3 K/mm3 LYMPHOCYTE # (test code = LY#) 1.6 K/mm3 MONOCYTE # (test code = MO#) 0.9 K/mm3 EOSINOPHIL # (test code = EO#) 0.06 K/mm3 BASOPHIL # (test code = BA#) 0.0 K/mm3 RBC MORPHOLOGY REQUIRED (test code NORMAL NORMAL = RBCM) PLATELET MORPHOLOGY REQUIRED (test NORMAL NORMAL code = PLTMR)
[2021-01-16 00:57] LABS: Basophils % 0.5 % (0-1.3); Hematocrit 42.3 % (36.0-45.0); Lymphocytes % 14.1 % (15.3-44.8); RBC Red Blood Cell Count 4.67 M/uL (3.86-4.86)
[2021-01-16 01:12] LABS: Protime INR 0.96
[2021-01-16 01:17] LABS: BUN Blood Urea Nitrogen 6 mg/dL (7-18); Bicarbonate 31 mmol/L (21-32); Creatine Phosphokinase 157 U/L (26-192); Glucose Level 115 mg/dL (74-106); Magnesium 2.1 mg/dL (1.8-2.4); Potassium 3.8 mmol/L (3.5-5.1); Sodium Level 141 mmol/L (136-145); Troponin (Emerg Dept Use Only) < 0.02 ng/mL (0.0-0.045)
[2021-01-16] MEDS ORDERED: NA CHLORIDE 0.9% 1,000 ML ONE (01:28)
--- NOTE | 2021-01-16 02:09 | ER ---
Nurse's Notes [facility] Name: Ashly Sylvester Age: 35 yrs Sex: Female : 1985 Arrival Date: 01/16/2021 Time: 00:24 Bed 25 Private MD: Diagnosis: Headache;Other visual disturbances Presentation: 01/16 00:24 Chief complaint: Patient states: headache that started about 2 hours ago, reports right em sided blurred vision, also reports reports having a brain bleed last year in September, developed chest pain that started 30 minutes ago. Coronavirus screen: Client denies travel out of the [place] in the last 14 days. Ebola Screen: Patient negative for fever greater than or equal to 101.5 degrees Fahrenheit, and additional compatible Ebola Virus Disease symptoms Patient denies exposure to infectious person. Patient denies travel to an Ebola-affected area in the 21 days before illness onset. No symptoms or risks identified at this time. Initial Sepsis Screen: Does the patient meet any 2 criteria? No. Patient's initial sepsis screen is negative. Does the patient have a suspected source of infection? No. Patient's initial sepsis screen is negative. Risk Assessment: Do you want to hurt yourself or someone else? Patient reports no desire to harm self or others. Onset of symptoms was January 16, 2021. 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 - Social history:: Smoking status: Patient denies any tobacco usage or history of. Screenin:45 Abuse screen: Denies threats or abuse. Nutritional screening: No deficits noted. jb4 Tuberculosis screening: No symptoms or risk factors identified. Fall Risk None identified. Assessment: 01:15 VAN Scoring: Arm Drift: Patients demonstrates NO arm weakness. Patient is VAN Negative. jb4 Patient has been NPO before screening. The patient is alert, and able to follow commands. The patient does not exhibit slurred or garbled speech. The patient is not exhibiting difficulty speaking. The patient does not exhibit difficulty understanding words. The patient is able to swallow own secretions with no drooling or need for suction. Patient tolerated one teaspoon of water. No drooling, immediate coughing, gurgling, or clearing of the throat was noted. The patient tolerated 90mL of water. No drooling, immediate coughing, gurgling, or clearing of the throat was noted. The patient passed the bedside swallow screening. Oral medications may be given as ordered. Contact Physician for further diet orders. Provider notified of bedside swallow screening results: Quincy FONTAINE. General: Behavior is calm, cooperative, appropriate for age, Pt reports new onset blurry vision to the right eye.. Pain: Complains of pain in headache. Neuro: Level of Consciousness is awake, alert, obeys commands, Oriented to person, place, time, situation, Body Finisher are equal bilaterally Moves all extremities. Full function Gait is steady, Speech is normal, Facial symmetry appears normal, Pupils are PERRLA, Intact. Cardiovascular: Patient's skin is warm and dry. Respiratory: Airway is patent Respiratory effort is even, unlabored, Respiratory pattern is regular, symmetrical. GI: No signs and/or symptoms were reported involving the gastrointestinal system. : No signs and/or symptoms were reported regarding the genitourinary system. EENT: Derm: Skin is intact, Skin is pink, warm \T\ dry. Musculoskeletal: Circulation, motion, and sensation intact. Range of motion: intact in all extremities. 02:00 Reassessment: Patient appears in no apparent distress at this time. Patient and/or jb4 family updated on plan of care and expected duration. Pain level reassessed. Patient is alert, oriented x 3, equal unlabored respirations, skin warm/dry/pink. 03:00 Reassessment: Patient appears in no apparent distress at this time. Patient and/or jb4 family updated on plan of care and expected duration. Pain level reassessed. Patient is alert, oriented x 3, equal unlabored respirations, skin warm/dry/pink. 04:20 Reassessment: Patient appears in no apparent distress at this time. Patient and/or jb4 family updated on plan of care and expected duration. Pain level reassessed. Patient is alert, oriented x 3, equal unlabored respirations, skin warm/dry/pink. Pt verbalized that all symptoms have gone. Denies having a headache. Reports having a history of migraines with the same symptoms. Pt no longer wishes to be hospitalized. Provider notified. Pt informed that symptoms could return or worsen up to the point of . Pt verbalized understanding of risk. AMA form signed. Pt left ED with a steady gait. Vital Signs: 00:24 BP 150 / 108; Pulse 55; Resp 18; Temp 97.3; Pulse Ox 100% on R/A; Weight 63.5 kg; em Height 5 ft. 5 in. (165.10 cm); 01:30 BP 156 / 106; Pulse 61; Resp 19; Pulse Ox 98% on R/A; jb4 03:00 BP 142 / 88; Pulse 68; Resp 16; Pulse Ox 100% on R/A; jb4 00:24 Body Mass Index 23.30 (63.50 kg, 165.10 cm) em NIH Stroke Scale Scores: 00:53 NIHSS Score: 0 cp 01:15 NIHSS Score: 1 jb4 ED Course: 00:24 Patient arrived in ED. em 00:30 Triage completed. em 00:30 Arm band placed on. em 00:45 Quincy Cerda PA is PHCP. cp 00:45 Ty Steward MD is Attending Physician. cp 00:48 CT Stroke Brain w/o Contrast In Process Unspecified. EDMS 01:00 Initial lab(s) drawn, by me, sent to lab. Inserted saline lock: 18 gauge in left jb4 antecubital area, using aseptic technique. Blood collected. 01:08 Stroke CXR 1 View In Process Unspecified. EDMS 01:19 Jordan Andino, AVERY is Primary Nurse. jb4 02:01 CT Head Angio In Process Unspecified. EDMS 02:01 CT Neck Angio In Process Unspecified. EDMS 02:07 Misael Nuñez DO is Hospitalizing Provider. cp 02:45 Patient has correct armband on for positive identification. Placed in gown. Bed in low jb4 position. Call light in reach. Side rails up X 1. exterior door installer on. Pulse ox on. NIBP on. 03:53 Misael Nuñez DO is Hospitalizing Provider. cp 04:20 Jeffry Douglas MD is Referral Physician. [facility] 04:20 No provider procedures requiring assistance completed. IV discontinued, intact, jb4 bleeding controlled, No redness/swelling at site. Pressure dressing applied. Administered Medications: 01:15 Drug: NS 0.9% 500 ml Route: IV; Rate: bolus; Site: left antecubital; jb4 02:45 Drug: NS 0.9% 500 ml Route: IV; Rate: 125 ml/hr; Site: left antecubital; jb4 04:20 Follow up: Response: No adverse reaction; IV Status: Order to discontinue infusion jb4 02:45 Drug: Benadryl (diphenhydrAMINE) 25 mg Route: IVP; Site: left antecubital; jb4 03:15 Follow up: Response: No adverse reaction jb4 02:45 Drug: Aspirin Chewable Tablet 81 mg Route: PO; jb4 03:15 Follow up: Response: No adverse reaction jb4 02:46 Drug: Zofran (Ondansetron) 4 mg Route: IVP; Site: left antecubital; jb4 03:15 Follow up: Response: No adverse reaction jb4 02:48 Drug: Reglan (metoCLOPramide) 10 mg Route: IVP; Site: left antecubital; jb4 03:15 Follow up: Response: No adverse reaction jb4 02:50 Drug: Decadron - Dexamethasone 10 mg Route: IVP; Site: left antecubital; jb4 03:15 Follow up: Response: No adverse reaction jb4 02:51 Drug: foLIC Acid 1 mg Route: IVPB; Site: left antecubital; jb4 03:15 Follow up: Response: No adverse reaction; IV Status: Completed infusion jb4 Outcome: 02:09 Decision to Hospitalize by Provider. cp 03:23 ER care complete, transfer ordered by MD. cp 03:54 Decision to Hospitalize by Provider. cp 04:20 AMA jb4 04:20 Condition: stable 04:24 Patient left the ED. jb4 NIH Stroke Scale - NIH Stroke Score Date: 01/16/2021 Time: 00:53 Total Score = 0 1a. Level of Consciousness (LOC) - 0(Alert) 1b. Level of Consciousness (LOC) (Month \T\ Age) - 0(Both) 1c. LOC Commands (Open \T\ Closes Eyes/Ring Attacher) - 0(Both) 2. Best Gaze (Lateral Gaze Paresis) - 0(Normal) 3. Visual Field Loss - 0(No visual loss) 4. Facial Palsy - 0(Normal) 5a. Left Arm: Motor (10-second hold) - 0(No drift) 5b. Right Arm: Motor (10-second hold) - 0(No drift) 6a. Left Leg: Motor (5-second hold - always test supine) - 0(No drift) 6b. Right Leg: Motor (5-second hold - always test supine) - 0(No drift) 7. Limb Ataxia (finger/nose \T\ heel/mancera - test with eyes open) - 0(Absent) 8. Sensory Loss (pinprick arms/legs/face) - 0(Normal) 9. Best Language: Aphasia (description/naming/reading) - 0(No aphasia) 10. Dysarthria (speech clarity - read or repeat words) - 0(Normal) 11. Extinction and Inattention (visual/tactile/auditory/spatial/personal) - 0(No abnormality) Initials: cp NIH Stroke Scale - NIH Stroke Score Date: 01/16/2021 Time: :15 Total Score = 1 1a. Level of Consciousness (LOC) - 0(Alert) 1b. Level of Consciousness (LOC) (Month \T\ Age) - 0(Both) 1c. LOC Commands (Open \T\ Closes Eyes/Ring Attacher) - 0(Both) 2. Best Gaze (Lateral Gaze Paresis) - 0(Normal) 3. Visual Field Loss - 1(Partial hemianopia) 4. Facial Palsy - 0(Normal) 5a. Left Arm: Motor (10-second hold) - 0(No drift) 5b. Right Arm: Motor (10-second hold) - 0(No drift) 6a. Left Leg: Motor (5-second hold - always test supine) - 0(No drift) 6b. Right Leg: Motor (5-second hold - always test supine) - 0(No drift) 7. Limb Ataxia (finger/nose \T\ heel/mancera - test with eyes open) - 0(Absent) 8. Sensory Loss (pinprick arms/legs/face) - 0(Normal) 9. Best Language: Aphasia (description/naming/reading) - 0(No aphasia) 10. Dysarthria (speech clarity - read or repeat words) - 0(Normal) 11. Extinction and Inattention (visual/tactile/auditory/spatial/personal) - 0(No abnormality) Initials: jb4 Signatures: Dispatcher [employer] Reinaldo Huddleston, RN RN Quincy Rosario PA PA cp Bryson, James, RN RN jb4 Ty Steward MD MD [id number]
--- NOTE | 2021-01-16 02:09 | EDPHYS ---
Physician Documentation [facility] Name: Ashly Sylvester Age: 35 yrs Sex: Female : 1985 Arrival Date: 01/16/2021 Time: 00:24 Bed 25 Private MD: ED Physician Ty Steward HPI: 01/16 00:45 This 35 yrs old Female presents to ER via Ambulatory with complaints of cp Headache. 00:45 The patient's problem is reported as right side headache. Onset: The symptoms/episode cp began/occurred 3 hour(s) ago. Duration: The episode is continuous. 00:45 Associated signs and symptoms: Pertinent positives: right eye blurred vision. Patient's cp baseline: Neuro: alert and fully oriented, Motor: no deficits, Ambulation: walks without assistance, Speech: normal, The patient has a previous history of CVA. Patient reports headache and right eye blurry vision started 2-3 hours ago. Similar symptoms to previous CVA. 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 - Social history:: Smoking status: Patient denies any tobacco usage or history of. ROS: 00:50 Neuro: Positive for headache, of the right side of head. cp 00:50 Constitutional: Negative for body aches, chills, fever, poor PO intake. cp 00:50 Eyes: Positive for blurry vision, of the right eye, Negative for discharge, redness, vision loss. 00:50 ENT: Negative for ear pain, rhinorrhea, sore throat, difficulty swallowing, difficulty handling secretions. 00:50 Cardiovascular: Positive for chest pain. 00:50 Respiratory: Negative for cough, shortness of breath, wheezing. 00:50 Abdomen/GI: Negative for vomiting, diarrhea, constipation. 00:50 Skin: Negative for rash. 00:50 All other systems are negative. Exam: 00:53 Constitutional: The patient appears in no acute distress, alert, awake, cp non-diaphoretic, non-toxic, well developed, well nourished. 00:53 Head/Face: Normocephalic, atraumatic. cp 00:53 Eyes: Periorbital structures: appear normal, Pupils: equal, round, and reactive to light and accomodation, Extraocular movements: intact throughout, Conjunctiva: normal, no exudate, no injection, Sclera: no appreciated abnormality, Lids and lashes: appear normal, bilaterally. 00:53 ENT: External ear(s): are unremarkable, Nose: is normal, Mouth: Lips: moist, Oral mucosa: moist, Posterior pharynx: Airway: no evidence of obstruction, patent. 00:53 Neck: ROM/movement: limited range of motion, is not appreciated, nuchal rigidity, is not appreciated. 00:53 Chest/axilla: Inspection: normal, Palpation: is normal, no crepitus, no tenderness. 00:53 Cardiovascular: Rate: bradycardic, Rhythm: regular. 00:53 Respiratory: the patient does not display signs of respiratory distress, Respirations: normal, no use of accessory muscles, no retractions, labored breathing, is not present, Breath sounds: are clear throughout, no decreased breath sounds, no stridor, no wheezing. 00:53 Abdomen/GI: Exam negative for discomfort, distension, guarding, Inspection: abdomen appears normal. 00:53 Neuro: Orientation: to person, place \T\ time. Mentation: is normal, Motor: moves all fours, strength is normal, Sensation: no obvious gross deficits. 00:58 Radiologist reports: no acute infarction cp 01:16 ECG was reviewed by the Attending Physician. cp Vital Signs: 00:24 BP 150 / 108; Pulse 55; Resp 18; Temp 97.3; Pulse Ox 100% on R/A; Weight 63.5 kg; em Height 5 ft. 5 in. (165.10 cm); 01:30 BP 156 / 106; Pulse 61; Resp 19; Pulse Ox 98% on R/A; jb4 03:00 BP 142 / 88; Pulse 68; Resp 16; Pulse Ox 100% on R/A; jb4 00:24 Body Mass Index 23.30 (63.50 kg, 165.10 cm) em NIH Stroke Scale Scores: 00:53 NIHSS Score: 0 cp 01:15 NIHSS Score: 1 jb4 MDM: 00:48 Patient medically screened. cp 01:00 Differential diagnosis: CVA, TIA, metabolic disorder, drug effects, migraine headache, cp intracranial bleed. 01:12 ED course: patient is not a candidate for tpa as she reports having surgery to remove cp fallopian tubes yesterday morning at [facility]. 03:15 Data reviewed: vital signs, nurses notes, lab test result(s), EKG, radiologic studies, cp CT scan, plain films. 03:15 Test interpretation: by ED physician or midlevel provider: ECG, plain radiologic cp studies. Counseling: I had a detailed discussion with the patient and/or guardian regarding: the historical points, exam findings, and any diagnostic results supporting the discharge/admit diagnosis, lab results, radiology results. 03:30 Response to treatment: the patient's symptoms have mildly improved after treatment, and cp as a result, I will transfer patient. 09:30 ED course: Contacted by Dr. Hayward regarding some free air in the abdominal cavity pm1 from chest x-ray. Informed Dr. Hayward that the patient signed out AGAINST MEDICAL ADVICE and left the hospital. Interrogated the chart further and it was noted that the patient had a procedure to remove her fallopian tubes at [facility] the previous day to presentation in the ER. Informed Dr. Hayward about the procedure and it is a reasonable explanation for the free air on chest x-ray.. 01/16 00:39 Order name: Basic Metabolic Panel; Complete Time: 02:27 cp 01/16 00:39 Order name: CBC with Diff; Complete Time: 02:27 cp 01/16 00:39 Order name: CPK; Complete Time: 02:27 cp 01/16 00:39 Order name: Magnesium; Complete Time: 02:27 cp 01/16 00:39 Order name: Protime (+inr); Complete Time: 02:27 cp 01/16 00:39 Order name: Ptt, Activated; Complete Time: 02:27 cp 01/16 00:39 Order name: Troponin (emerg Dept Use Only); Complete Time: 02:27 cp 01/16 00:39 Order name: CT Stroke Brain w/o Contrast cp 01/16 00:39 Order name: Stroke CXR 1 View cp 01/16 01:00 Order name: CT Head Angio cp 01/16 03:47 Order name: SARS-COV-2 RT PCR; Complete Time: 09:24 EDMS 01/16 00:39 Order name: EKG; Complete Time: 00:40 cp 01/16 00:39 Order name: Accucheck; Complete Time: 01:20 cp 01/16 00:39 Order name: Cardiac monitoring; Complete Time: 01:20 cp 01/16 00:39 Order name: EKG - Nurse/Tech; Complete Time: 01:20 cp 01/16 00:39 Order name: IV Saline Lock; Complete Time: 01:20 cp 01/16 00:39 Order name: Labs collected and sent; Complete Time: 01:20 cp 01/16 01:00 Order name: CT Neck Angio cp 01/16 00:39 Order name: NPO; Complete Time: 01:20 cp 01/16 00:39 Order name: O2 Per Protocol; Complete Time: 01:20 cp 01/16 00:39 Order name: O2 Sat Monitoring; Complete Time: 01:20 cp 01/16 00:39 Order name: Stroke Swallow Screen; Complete Time: 01:20 cp EC:16 Rate is 51 beats/min. Rhythm is regular. IL interval is normal. QRS interval is normal. cp QT interval is normal. Interpreted by me. Reviewed by me. Administered Medications: 01:15 Drug: NS 0.9% 500 ml Route: IV; Rate: bolus; Site: left antecubital; jb4 02:45 Drug: NS 0.9% 500 ml Route: IV; Rate: 125 ml/hr; Site: left antecubital; jb4 04:20 Follow up: Response: No adverse reaction; IV Status: Order to discontinue infusion jb4 02:45 Drug: Benadryl (diphenhydrAMINE) 25 mg Route: IVP; Site: left antecubital; jb4 03:15 Follow up: Response: No adverse reaction jb4 02:45 Drug: Aspirin Chewable Tablet 81 mg Route: PO; jb4 03:15 Follow up: Response: No adverse reaction jb4 02:46 Drug: Zofran (Ondansetron) 4 mg Route: IVP; Site: left antecubital; jb4 03:15 Follow up: Response: No adverse reaction jb4 02:48 Drug: Reglan (metoCLOPramide) 10 mg Route: IVP; Site: left antecubital; jb4 03:15 Follow up: Response: No adverse reaction jb4 02:50 Drug: Decadron - Dexamethasone 10 mg Route: IVP; Site: left antecubital; jb4 03:15 Follow up: Response: No adverse reaction jb4 02:51 Drug: foLIC Acid 1 mg Route: IVPB; Site: left antecubital; jb4 03:15 Follow up: Response: No adverse reaction; IV Status: Completed infusion jb4 Disposition: 03:45 Chart complete. cp 05:09 Co-signature as Attending Physician, Ty Steward MD. 7 Disposition Summary: 01/16/21 04:21 Left Against Medical Advice Location: Home(01/16/21 04:21) mh7 Problem: new(01/16/21 04:21) mh7 Symptoms: are resolved(01/16/21 04:21) mh7 Condition: Stable(01/16/21 04:21) mh7 Diagnosis - Headache(01/16/21 04:21) mh7 - Other visual disturbances(01/16/21 04:21) 7 Followup: [facility] - With: Private Physician - When: 1 - 2 days - Reason: Worsening of condition, Recheck today's complaints, Continuance of care, Re-evaluation by your physician Followup: [facility] - With: Jeffry Douglas MD - When: 1 - 2 days - Reason: Worsening of condition, Recheck today's complaints, Continuance of care, Re-evaluation by your physician Discharge Instructions: - Discharge Summary Sheet mh7 - Blurred Vision, Adult mh7 - General Headache Without Cause mh7 NIH Stroke Scale - NIH Stroke Score Date: 01/16/2021 Time: 00:53 Total Score = 0 1a. Level of Consciousness (LOC) - 0(Alert) 1b. Level of Consciousness (LOC) (Month \T\ Age) - 0(Both) 1c. LOC Commands (Open \T\ Closes Eyes/Golf Cart Repairer) - 0(Both) 2. Best Gaze (Lateral Gaze Paresis) - 0(Normal) 3. Visual Field Loss - 0(No visual loss) 4. Facial Palsy - 0(Normal) 5a. Left Arm: Motor (10-second hold) - 0(No drift) 5b. Right Arm: Motor (10-second hold) - 0(No drift) 6a. Left Leg: Motor (5-second hold - always test supine) - 0(No drift) 6b. Right Leg: Motor (5-second hold - always test supine) - 0(No drift) 7. Limb Ataxia (finger/nose \T\ heel/mancera - test with eyes open) - 0(Absent) 8. Sensory Loss (pinprick arms/legs/face) - 0(Normal) 9. Best Language: Aphasia (description/naming/reading) - 0(No aphasia) 10. Dysarthria (speech clarity - read or repeat words) - 0(Normal) 11. Extinction and Inattention (visual/tactile/auditory/spatial/personal) - 0(No abnormality) Initials: cp NIH Stroke Scale - NIH Stroke Score Date: 01/16/2021 Time: :15 Total Score = 1 1a. Level of Consciousness (LOC) - 0(Alert) 1b. Level of Consciousness (LOC) (Month \T\ Age) - 0(Both) 1c. LOC Commands (Open \T\ Closes Eyes/Golf Cart Repairer) - 0(Both) 2. Best Gaze (Lateral Gaze Paresis) - 0(Normal) 3. Visual Field Loss - 1(Partial hemianopia) 4. Facial Palsy - 0(Normal) 5a. Left Arm: Motor (10-second hold) - 0(No drift) 5b. Right Arm: Motor (10-second hold) - 0(No drift) 6a. Left Leg: Motor (5-second hold - always test supine) - 0(No drift) 6b. Right Leg: Motor (5-second hold - always test supine) - 0(No drift) 7. Limb Ataxia (finger/nose \T\ heel/mancera - test with eyes open) - 0(Absent) 8. Sensory Loss (pinprick arms/legs/face) - 0(Normal) 9. Best Language: Aphasia (description/naming/reading) - 0(No aphasia) 10. Dysarthria (speech clarity - read or repeat words) - 0(Normal) 11. Extinction and Inattention (visual/tactile/auditory/spatial/personal) - 0(No abnormality) Initials: jb4 Signatures: Dispatcher [employer] EDKamila Giles RN RN mw Munoz, Edgar, RN RN em Page, Corey, PA PA cp Deangelo Lai, CHUCKER CHUCKER pm1 Jordan Andino RN RN jb4 Ty Steward MD MD 7 Dago Leblanc PA PA alfonso Corrections: (The following items were deleted from the chart) 00:42 00:41 Head Brain Wo Cont ordered. EDMS EDMS 02:52 02:07 CORONAVIRUS+MR.LAB.BRZ ordered. EDMS EDMS 03:22 02:09 Observation cp cp 03:22 02:09 Claixto Nuñezand cp cp 03:22 02:09 Telemetry/MedSurg (observation) cp cp 03:22 02:09 Stable cp cp 03:22 02:09 new cp cp 03:22 02:09 have improved cp cp 03:22 02:09 Standard cp cp 03:22 02:09 cp cp 03:22 02:09 Headache cp cp 03:22 02:09 Other visual disturbances cp cp 03:53 03:23 Doctor cp cp 03:53 03:23 Other Acute Care Facility cp cp 03:53 03:23 Higher level of care cp cp 03:53 03:23 Stable cp cp 03:53 03:23 new cp cp 03:53 03:23 have improved cp cp 03:53 03:23 Headache cp cp 03:53 03:23 Other visual disturbances cp cp 03:55 03:54 Telemetry/MedSurg (Inpatient) cp mw 03:55 03:54 cp mw 04:07 03:54 CONS Physician Consult ordered. EDMS EDMS 04:20 03:54 Inpatient Admission cp mh7 04:20 03:54 Misael Nuñez cp mh7 04:20 03:54 Stable cp mh7 04:20 03:54 new cp mh7 04:20 03:54 have improved cp mh7 04:20 03:54 Standard cp mh7 04:20 03:54 Other visual disturbances cp mh7 04:20 03:54 Headache cp mh7 04:20 03:55 [facility] ER HOLD mw mh7 04:20 03:55 ERHOLD- mw mh7 01/17 02:52 08 04:20 Response to treatment: the patient's symptoms have mildly improved cp after treatment, and as a result, I will transfer patient, cp
[2021-01-16] MEDS ORDERED: METOCLOPRAMIDE 10 MG/2mL INJ ONE (02:50)
[2021-01-16] MEDS ORDERED: DIPHENHYDRAMINE 50 MG/ML VIAL ONE (02:51)
[2021-01-16] MEDS ORDERED: ONDANSETRON 4 MG/2 ML VIAL ONE (02:51)
[2021-01-16] MEDS ORDERED: ASPIRIN 81 MG CHEWABLE TABLET ONE (02:51)
[2021-01-16] MEDS ORDERED: dexAMETHasone 10 MG/ML VIAL ONE (02:51)
[2021-01-16] MEDS ORDERED: FOLIC ACID 5 MG/ML VIAL ONE (03:14)
[2021-01-16 04:35] VITALS: TEMP 97.3
[2021-01-16 04:44] VITALS: BP 142/88; O2SAT 100
--- NOTE | 2021-01-16 09:35 | RAD REPORT ---
EXAM DESCRIPTION: RAD - Chest Single View - 01/16/2021 1:08 am CLINICAL HISTORY: headache, chest pain COMPARISON: September 2019 TECHNIQUE: AP portable chest image was obtained 01/16/2021 1:08 am . FINDINGS: Lung volumes are low compared to the prior study. Overlying soft tissues increased density of each lung base. True lung parenchymal disease is doubtful. Trachea is in midline. Heart and vascu lature are normal. No measurable pleural effusion and no pneumothorax. No acute bony abnormality seen . No acute aortic finding. Air is evident below each hemidiaphragm. No history is available regarding any recent abdominal surge ry or procedure. Findings telephoned to Deangelo in the emergency department 9:25 a.m.. 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 IMPRESSION: No acute cardiopulmonary process. Free intraperitoneal air is present but not unexpected given the history of recent SENIOR TERADATA DEVELOPER surgery.
--- NOTE | 2021-01-16 19:22 | RAD REPORT ---
EXAM DESCRIPTION: CT - Ct Stroke Brain Wo Cont - 01/16/2021 6:27 am ADDENDUM #1 THIS REPORT CONTAINS FINDINGS THAT MAY BE CRITICAL TO PATIENT CARE: The findings were verbally discus sed via telephone conference with ZHEN Cerda by Dr. Bello Tam on 01/16/2021 12:58 AM CDT .The results were acknowledged and understood. Electronically signed by: Valerie Tam MD 01/16/2021 6:54 AM CDT End of Addendum EXAM DESCRIPTION: CT Head Without Intravenous Contrast EXAM DATE/TIME: January 16, 2021 at 0041 hours CLINICAL HISTORY: The patient is 35 years old and is Female; HEADACHE TECHNIQUE: Axial computed tomography images of the head/brain without intravenous contrast. Sagitt al and coronal reformatted images were created and reviewed. This CT exam was performed using one o r more of the following dose reduction techniques: automated exposure control, adjustment of the mA and/or kV according to patient size, and/or use of iterative reconstruction technique. COMPARISON: CT of the head September 24, 2019 FINDINGS: BRAIN: Focal area of encephalomalacia within the left parietal lobe is noted. The garrett-w kassi differentiation is maintained. No intracranial hemorrhage, mass effect or midline shift is seen. There are no extra-axial fluid collections. The garrett-white differentiation is maintained. There is no cerebral edema. VENTRICLES: Unremarkable. No ventriculomegaly. BONES/JOINTS: No acute fracture. SOFT TISSUES: Unremarkable. SINUSES: Unremarkable as visualized. No acute sinusitis. MASTOID AIR CELLS: Unremarkable as visualized. No mastoid effusion. ORBITS: Unremarkable as visualized. IMPRESSION: No acute intracranial findings. Electronically signed by: Valerie Tam MD 01/16/2021 12:56 AM CDT Due to temporary technical issues with the PACS/Fluency reporting system, reports are being signed by the in house radiologists without review as a courtesy to insure prompt reporting. The interpreting radiologist is fully responsible for the content of the report.
--- NOTE | 2021-01-16 19:25 | RAD REPORT ---
EXAM DESCRIPTION: CT - Head angio - 01/16/2021 6:29 am CLINICAL HISTORY: 35 years Female HEADACHE TECHNIQUE: Following dynamic intravenous nonionic contrast infusion, multiple axial helical CT angio graphic images of the head and neck with multiplanar reformation, 3D and MIP reconstructions were per formed. All CT scans at this facility use dose modulation, iterative reconstruction, and/or weight based dosing when appropriate to reduce radiation dose to as low as reasonably achievable. Stenosis m easurements performed using NASCET criteria. COMPARISON: None. FINDINGS: CTA HEAD: LEFT: ICA: No stenosis or occlusion. Anterior cerebral arteries: No stenosis or occlusion. Middle cerebral arteries: No stenosis or occlusion. Posterior cerebral arteries: No stenosis or occlusion. RIGHT: ICA: No stenosis or occlusion. Anterior cerebral arteries: No stenosis or occlusion. Middle cerebral arteries: No stenosis or occlusion. Posterior cerebral arteries: No stenosis or occlusion. Basilar artery: No stenosis or occlusion. Vertebral artery: No dissection, occlusion or significant stenosis. Variant anatomy: None. Other: No aneurysm or vascular malformation. Dural venous sinuses are patent. CTA NECK: Aortic arch: Demonstrates conventional branching. Normal caliber. Brachiocephalic artery: Normal caliber. No stenosis LEFT Subclavian artery: No stenosis or occlusion. Vertebral artery: No stenosis, dissection or occlusion. Common carotid artery: No stenosis, dissection or occlusion. Internal carotid: Thin linear filling defect from the posterior aspect of the proximal internal carot id artery just beyond the carotid bifurcation. No hemodynamically significant stenosis and no occlu prem. External carotid: No stenosis or occlusion. RIGHT Subclavian artery: No stenosis or occlusion. Vertebral artery: No stenosis, dissection or occlusion. Common carotid artery: No stenosis, dissection or occlusion. Internal carotid: No stenosis, dissection or occlusion. External carotid: No stenosis or occlusion. Other: Status post anterior fusion at C6-C7. Visualized lung apices are clear. IMPRESSION: 1. Unremarkable CTA of the head. 2. Thin linear filling defect from the posterior aspect of the left proximal internal carotid artery just beyond the carotid bifurcation consistent with carotid web. Electronically signed by: Rogerio Martinez MD 01/16/2021 2:45 AM CDT Due to temporary technical issues with the PACS/Fluency reporting system, reports are being signed by the in house radiologists without review as a courtesy to insure prompt reporting. The interpreting radiologist is fully responsible for the content of the report.
--- NOTE | 2021-01-16 19:37 | RAD REPORT ---
EXAM DESCRIPTION: CT - Neck Angio - 01/16/2021 6:29 am CLINICAL HISTORY: 35 years Female HEADACHE TECHNIQUE: Following dynamic intravenous nonionic contrast infusion, multiple axial helical CT angio graphic images of the head and neck with multiplanar reformation, 3D and MIP reconstructions were per formed. All CT scans at this facility use dose modulation, iterative reconstruction, and/or weight based dosing when appropriate to reduce radiation dose to as low as reasonably achievable. Stenosis m easurements performed using NASCET criteria. COMPARISON: None. FINDINGS: CTA HEAD: LEFT: ICA: No stenosis or occlusion. Anterior cerebral arteries: No stenosis or occlusion. Middle cerebral arteries: No stenosis or occlusion. Posterior cerebral arteries: No stenosis or occlusion. RIGHT: ICA: No stenosis or occlusion. Anterior cerebral arteries: No stenosis or occlusion. Middle cerebral arteries: No stenosis or occlusion. Posterior cerebral arteries: No stenosis or occlusion. Basilar artery: No stenosis or occlusion. Vertebral artery: No dissection, occlusion or significant stenosis. Variant anatomy: None. Other: No aneurysm or vascular malformation. Dural venous sinuses are patent. CTA NECK: Aortic arch: Demonstrates conventional branching. Normal caliber. Brachiocephalic artery: Normal caliber. No stenosis LEFT Subclavian artery: No stenosis or occlusion. Vertebral artery: No stenosis, dissection or occlusion. Common carotid artery: No stenosis, dissection or occlusion. Internal carotid: Thin linear filling defect from the posterior aspect of the proximal internal carot id artery just beyond the carotid bifurcation. No hemodynamically significant stenosis and no occlu prem. External carotid: No stenosis or occlusion. RIGHT Subclavian artery: No stenosis or occlusion. Vertebral artery: No stenosis, dissection or occlusion. Common carotid artery: No stenosis, dissection or occlusion. Internal carotid: No stenosis, dissection or occlusion. External carotid: No stenosis or occlusion. Other: Status post anterior fusion at C6-C7. Visualized lung apices are clear. IMPRESSION: 1. Unremarkable CTA of the head. 2. Thin linear filling defect from the posterior aspect of the left proximal internal carotid artery just beyond the carotid bifurcation consistent with carotid web. Electronically signed by: Rogerio Martinez MD 01/16/2021 2:45 AM CDT Due to temporary technical issues with the PACS/Fluency reporting system, reports are being signed by the in house radiologists without review as a courtesy to insure prompt reporting. The interpreting radiologist is fully responsible for the content of the report.
== END 2021-01-16 04:24 | disposition left against medical advice (07) ==
LOC: ER 00:06 → UNDOADMIN 04:09 → ERHOLD 04:09
DX: H53.8 Other visual disturbances (principal); I10 Essential (primary) hypertension; Z20.822 Contact with and (suspected) exposure to COVID-19; Z88.1 Allergy status to other antibiotic agents; Z88.2 Allergy status to sulfonamides; Z98.890 Other specified postprocedural states
CPT/HCPCS: 96365; 96361; 93005; 85025; 80048; 36415; 83735; 82550; 85610; 85730; 84484; 70496; 70498; 70450; 71045; 96375; 99284; U0003; Q9967; J2765; J1200; J1100; J7030; J2405